=== PATIENT | male | born 1970 | race Caucasian/White ===

== ENCOUNTER 2017-07-27 12:59 | Emergency (ER) | payer BC, OTHER ==
[~2017-07-27] VITALS: Ht 170.2 cm; Wt 70.5 kg
[2017-07-27 13:00] VITALS: TEMP 37; Ht 170.2 cm; Wt 70.5 kg
[2017-07-27] MEDS ORDERED: MoRPHine SULFATE 10 MG/ML CARP/VIAL IV STA (13:56)
[2017-07-27] MEDS ORDERED: LIDOCAINE/EPINEPH/TETRACAINE 1 EA SYR EXT STA (13:58)
[2017-07-27] MEDS ORDERED: CLINDAMYCIN IV 900 MG in DEXTROSE 5% 100ML 100 ML IV ONE (14:00)
[2017-07-27] MEDS ORDERED: LIDOCAINE/EPINEPHRINE 1% 20 ML VIAL INFIL ONE (14:00)
--- NOTE | 2017-07-27 14:02 | EMERGENCY ROOM VISIT NOTE ---
History Report prepared by Андрей: Sheng Peralta Under the Supervision of: Dr. Terrence Gonzalez M.D. First contact with patient: 13:20 Chief Complaint: FACIAL PAIN/INJURY Stated Complaint: SWOLLEN AND PAINFUL LIP History of Present Illness The patient is a 46 year old white male with a past medical history of DM who presents to the ED with a cc of worsening upper lip swelling beginning three days ago. Patient tried left over abx from sinus infection three days ago, but it did not help. Positive pain radiating to gums and head. Negative dental pain , recent shaving, smoking, changes in DM medication, allergies. Source of History: patient Onset: three days ago Position: lip (upper) Quality: other (swelling) Timing: worsening Note: Associated symptoms: pain radiates to his gums, jaw, and head. Denies: dental pain, recent shaving, smoking, changes in DM medication Review of Systems See HPI for pertinent positives and negatives. A total of ten systems were reviewed and were otherwise negative. Past Medical & Surgical Medical Problems: (1) Diabetes mellitus Family History Diabetes mellitus Social History Smoking Status: Never Smoker Smokeless Tobacco Use: No Alcohol Use: none Marital Status: single Housing Status: lives with family Occupation Status: employed Current/Historical Medications Scheduled Clindamycin Hcl (Cleocin), 450 MG PO QID Insulin Isophan/Regular (Humulin 70/30), 60 UNITS SC DAILY Ondasetron Odt (Zofran Odt), 4 MG SL Q6H Tramadol Hcl (Ultram), 50 MG PO Q8H Allergies Coded Allergies: No Known Allergies (Unverified , 07/27/17) Physical Exam Vital Signs Date Time Temp Pulse Resp B/P (MAP) Pulse Ox O2 Delivery O2 Flow Rate FiO2 07/27/17 17:25 119 18 128/71 97 Room Air 07/27/17 16:11 109 20 130/92 97 Room Air 07/27/17 14:52 86 15 113/73 95 Room Air 07/27/17 14:40 72 14 80/47 93 Room Air 07/27/17 14:37 67 14 77/45 94 07/27/17 14:34 74 15 89/57 96 Room Air 07/27/17 13:00 37.0 132 16 141/82 99 Room Air Physical Exam GENERAL: Awake, alert, well-appearing, NAD HENT: Normocephalic, atraumatic. Tenderness, erythema, and fluctuates to the upper lip. No tenderness or swelling to dental roots. EYES: Normal conjunctiva. Sclera non-icteric. NECK: Supple. No nuchal rigidity. FROM. RESPIRATORY: CTAB, no rhonchi, wheezing, crackles CARDIAC: RRR, no MRG ABDOMEN: Soft, NTND, BS+ MSK: No chest wall TTP, no LE edema NEURO: GCS 15, CN 2-12 intact, moves all 4s on command SKIN: No rash or jaundice noted. Medical Decision & Procedures Laboratory Results 07/27/17 14:30 Red Blood Count 5.68, Mean Corpuscular Volume 83.5, Mean Corpuscular Hemoglobin 29.0, Mean Corpuscular Hemoglobin Concent 34.8, Mean Platelet Volume 10.2, Neutrophils (%) (Auto) 80.8, Lymphocytes (%) (Auto) 11.7, Monocytes (%) (Auto) 6.3, Eosinophils (%) (Auto) 0.5, Basophils (%) (Auto) 0.3, Neutrophils # (Auto) 10.51, Lymphocytes # (Auto) 1.52, Monocytes # (Auto) 0.82, Eosinophils # (Auto) 0.06, Basophils # (Auto) 0.04 07/27/17 14:30 Test 07/27/17 14:30 White Blood Count 13.00 K/uL (4.8-10.8) Red Blood Count 5.68 M/uL (4.7-6.1) Hemoglobin 16.5 g/dL (14.0-18.0) Hematocrit 47.4 % (42-52) Mean Corpuscular Volume 83.5 fL (80-100) Mean Corpuscular Hemoglobin 29.0 pg (25-34) Mean Corpuscular Hemoglobin Concent 34.8 g/dl (32-36) Platelet Count 331 K/uL (130-400) Mean Platelet Volume 10.2 fL (7.4-10.4) Neutrophils (%) (Auto) 80.8 % Lymphocytes (%) (Auto) 11.7 % Monocytes (%) (Auto) 6.3 % Eosinophils (%) (Auto) 0.5 % Basophils (%) (Auto) 0.3 % Neutrophils # (Auto) 10.51 K/uL (1.4-6.5) Lymphocytes # (Auto) 1.52 K/uL (1.2-3.4) Monocytes # (Auto) 0.82 K/uL (0.11-0.59) Eosinophils # (Auto) 0.06 K/uL (0-0.5) Basophils # (Auto) 0.04 K/uL (0-0.2) RDW Standard Deviation 37.1 fL (36.4-46.3) RDW Coefficient of Variation 12.3 % (11.5-14.5) Immature Granulocyte % (Auto) 0.4 % Immature Granulocyte # (Auto) 0.05 K/uL (0.00-0.02) Anion Gap 11.0 mmol/L (3-11) Est Creatinine Clear Calc Drug Dose 83.1 ml/min Estimated GFR () 98.9 Estimated GFR (Non- 85.3 BUN/Creatinine Ratio 13.8 (10-20) Calcium Level 9.1 mg/dl (8.5-10.1) Laboratory results reviewed by me Medications Administered Medications (Trade) Dose Ordered Sig/Marcelle Route Start Time Stop Time Status Last Admin Dose Admin Morphine Sulfate (MoRPHine SULFATE INJ) 6 mg NOW STAT IV 07/27/17 13:56 07/27/17 13:59 DC 07/27/17 14:29 6 MG Clindamycin Phosphate 900 mg/ Dextrose 106 ml @ 100 mls/hr ONE ONCE IV 07/27/17 14:00 07/27/17 15:03 DC 07/27/17 14:31 100 MLS/HR Lidocaine/ Epinephrine (Xylocaine/Epine 1% Inj) 20 ml NOW ONCE INFIL 07/27/17 14:00 07/27/17 14:01 DC 07/27/17 14:20 20 ML Tetracaine/ Epinephrine/ Lidocaine (L.e.t. Gel 4%/ 1:100/0.5%) 1 ea NOW STAT EXT 07/27/17 13:58 07/27/17 13:59 DC 07/27/17 14:18 1 EA Sodium Chloride 1,000 ml @ 999 mls/hr Q1H1M STAT IV 07/27/17 14:41 07/27/17 15:41 DC 07/27/17 14:41 999 MLS/HR Acetaminophen/ Hydrocodone Bitart ([place] 5/325 Tab) 1 tab ONE STAT PO 07/27/17 16:03 07/27/17 16:04 DC 07/27/17 16:10 1 TAB Ibuprofen (Advil Tab) 400 mg NOW STAT PO 07/27/17 16:22 07/27/17 16:24 DC 07/27/17 16:30 400 MG Acetaminophen (Tylenol Tab) 1,000 mg NOW STAT PO 07/27/17 16:22 07/27/17 16:24 DC 07/27/17 16:30 1,000 MG Tramadol HCl (Ultram Tab) 50 mg NOW STAT PO 07/27/17 16:22 07/27/17 16:24 DC 07/27/17 16:31 50 MG Procedure Incision & Drainage Indication: Abscess. Location: Left upper lip Verbal consent was obtained after the risks and benefits were explained, including but not limited to bleeding, scarring, infection, pain, and bone/joint /nerve damage. At this time, the risks of the procedure are less than the risks of NOT performing the procedure. A time out was taken and the correct patient and site identified. The skin was prepped with betadine and a sterile field set. The wound was anesthetized with 2 ml of 1% lidocaine without epinephrine. The abscess cavity was entered with a number 11 blade and purulent ( approximately 1 cc) material expressed. Copious irrigation was performed using normal saline. The wound was explored for foreign bodies and none found. Debridement was not performed. Packing placed and a sterile dressing applied. Detailed wound care instructions and signs and symptoms of worsening infection reviewed with the patient. No complications and the patient tolerated the procedure well. ED Course 1351: The patient was evaluated in room C08. A complete history and physical exam was performed. 1519: I reevaluated the patient and performed and I&D. Please refer to the procedure note for information. After the procedure, I discussed results and discharge instructions: he verbalized understanding and agreement. The patient is ready for discharge. 1614: Lorraine the nurse informed me the patient would like to be evaluated again. He refuses to leave because he is in the worst pain ever. 1621: I reevaluated the patient. He agrees with having PO pain medication. The patient is ready for discharge. Medical Decision The patient is a 46 year old white male with a past medical history of DM who presents to the ED with a cc of worsening upper lip swelling beginning three days ago. Etiologies such as cellulitis, abscess, MRSA infection, DVT, necrotizing fasciitis, dermatitis, drug eruption, dental abscess, as well as others were entertained. Patient was seen and evaluated the bedside. Patient is a known diabetic. Patient states he thought he had an ingrown hair over the left upper lip. Patient states he has had affirmative pain which radiates to the lower face. Patient denies any fevers or chills. Patient denies any nausea or vomiting. Patient does have some swelling to the left lip there is some induration, questionable fluctuance, erythema, and pain. Patient does not appear to have any swelling at the dental roots. Patient otherwise is very well-appearing. Patient did have blood work that was completed along with IV antibiotics. Patient did have a low blood pressure reading at one appointment and fluids were hung. On reassessment of the patient the patient did not have any urticaria abdominal pain nausea vomiting, shortness of breath, or wheezing. Additionally that this blood pressure was aberrant as the patient did not have any tachycardia. Furthermore, I do not believe is a medication reaction as the patient did not have any IVF or mentioned symptoms. An ultrasound was placed over the area of pain which showed a very small area of fluid. Patient did have LET gel applied. An I&D was performed. There was not very much that was aspirated however after piercing the skin with an 18-gauge needle some purulent fluid was expressed from the area. Patient swelling was mildly improved. Patient was told he should apply warm compresses to help with relief of the fluid if there is any left and to apply ice as well for swelling. Patient was told take Motrin and Tylenol. Patient was also given additional pain medication prior to discharge. Patient was also told to take his medications as prescribed and avoid alcohol or tobacco. Patient was told to practice good oral hygiene. Patient was also told to apply bacitracin to the area. Patient did tolerate the procedure well. Patient's white blood cell count was 13. Patient did have an elevated blood glucose. Bicarbonate of 23 and a normal anion gap. Given the patient tolerated the I&D and that he was afebrile with stable vital signs see was deemed suitable for outpatient follow-up and treatment. Patient was told to return if he did not have improvement of his symptoms within the next 24-48 hours. Patient was agreeable to the plan of care. Patient was given strict follow-up, discharge, and return precautions. All questions were answered. Patient was deemed suitable for outpatient follow- up at this time. Patient agreed with the plan of care and was safely discharged home. Impression Primary Impression: Diabetes mellitus Additional Impressions: Facial abscess Hyperglycemia due to type 1 diabetes mellitus Scribe Attestation The scribe's documentation has been prepared under my direction and personally reviewed by me in its entirety. I confirm that the note above accurately reflects all work, treatment, procedures, and medical decision making performed by me. Departure Information Dispostion Home / Self-Care Prescriptions Tramadol Hcl (ULTRAM) 50 Mg Tab 50 MG PO Q8H for 5 Days, #15 TAB PRN PAIN Prov: Terrence Gonzalez M.D. 07/27/17 Ondasetron Odt (ZOFRAN ODT) 4 Mg Tab 4 MG SL Q6H for Nausea, #6 TAB Prov: Terrence Gonzalez M.D. 07/27/17 Clindamycin Hcl (CLEOCIN) 150 Mg Cap 450 MG PO QID for 7 Days, #84 CAP Prov: Terrence Gonzalez M.D. 07/27/17 Referrals Lelia Gao M.D. (PCP) Forms HOME CARE DOCUMENTATION FORM, IMPORTANT VISIT INFORMATION Patient Instructions ED Abscess IandD, ED Wound Care, [facility] Additional Instructions Please return to the emergency department if you have worsening or recurrent symptoms not amenable to at-home treatment. Please call for a follow-up appointment with her primary care physician. Please take your medications as prescribed. If you have other concerns and/or complaints please feel free to also call your primary care physician's office or return the ED for further evaluation, management, and treatment. You received narcotic or benzodiazepene medication while in the emergency room today. This is an addictive medication that may cause drowziness as well as constipation. Do not drive, operate heavy machinery, or drink alcohol under the influence of this medication. You may take 400 mg Ibuprofen every 6 hours as needed for pain with food for no more than 2 consecutive days. You may take tylenol 1000 mg every 6 hours as needed for pain. You may take motrin and tylenol separately or at the same time. Take your medications as prescribed. Continue to apply ice packs as well as warm compresses to the affected area. He may also apply a an antibiotic ointment to the area. Please return if he do not see improvement in her symptoms in the next 48 hours or call your PCP. You have been examined and treated today on an emergency basis only. This is not a substitute for, or an effort to provide, complete comprehensive medical care. It is impossible to recognize and treat all injuries or illnesses in a single emergency department visit. It is therefore important that you follow up closely with [facility], your PCP, and/or your specialist(s). Call as soon as possible for an appointment. Thank you for your time and consideration. I look forward to speaking with you again soon. Please don't hesitate to call us if you have any questions. Problem Qualifiers Primary Impression: Diabetes mellitus Diabetes mellitus type: type 1 Diabetes mellitus complication status: with skin complications Diabetes mellitus complication detail: with other skin complication Qualified Codes: E10.628 - Type 1 diabetes mellitus with other skin complications
[2017-07-27 14:40] LABS: BASO % 0.3 %; BASO ABS # 0.04 K/uL (0-0.2); COMPLETE YES; EOS % 0.5 %; HEMATOCRIT 47.4 % (42-52); IG% 0.4 %; LYMPH % 11.7 %; LYMPH ABS # 1.52 K/uL (1.2-3.4); MEAN CELL VOLUME 83.5 fL (80-100); MEAN CORPUSCULAR HGB CONC 34.8 g/dl (32-36); MEAN PLATELET VOLUME 10.2 fL (7.4-10.4); MONO % 6.3 %; NEUT % 80.8 %; PLATELET COUNT 331 K/uL (130-400); RED BLOOD COUNT 5.68 M/uL (4.7-6.1)
[2017-07-27] MEDS ORDERED: SODIUM CHLORIDE 0.9% 1000ML 1,000 ML IV STA (14:41)
[2017-07-27 14:56] LABS: BUN/CREATININE RATIO 13.8 (10-20); CALCIUM 9.1 mg/dl (8.5-10.1); CREATININE 1.05 mg/dl (0.60-1.40); POTASSIUM 3.9 mmol/L (3.5-5.1)
[2017-07-27] MEDS ORDERED: INSU1INJ SC (15:04)
[2017-07-27] MEDS ORDERED: ONDA4TAB10 SL (15:55)
[2017-07-27] MEDS ORDERED: CLIN150C PO (15:55)
[2017-07-27] MEDS ORDERED: TRAM-453 PO (15:55)
[2017-07-27] MEDS ORDERED: HYDROCODONE/ACETAMOPHEN 5/325MG TAB PO STA (16:03)
[2017-07-27] MEDS ORDERED: NURSING VERBAL MED ORDER ONE (16:15)
[2017-07-27] MEDS ORDERED: TRAMADOL HCL 50 MG TAB PO STA (16:22)
[2017-07-27] MEDS ORDERED: ACETAMINOPHEN 500 MG TAB PO STA (16:22)
[2017-07-27] MEDS ORDERED: IBUPROFEN 200 MG TAB PO STA (16:22)
[2017-07-27 17:25] VITALS: BP 128/71; PULSE 119; O2SAT 97
== END 2017-07-27 17:43 | disposition home or self-care (01) ==
LOC: C.EDB 13:00 → C.EDC 17:43
DX: E10.628 Type 1 diabetes mellitus with other skin complications (principal); E10.65 Type 1 diabetes mellitus with hyperglycemia; Z83.3 Family history of diabetes mellitus; Z79.4 Long term (current) use of insulin

== ENCOUNTER 2017-10-14 13:24 | Emergency (ER) | payer BC ==
[~2017-10-14] VITALS: Ht 170.2 cm; Wt 68.9 kg
[~2017-10-14 13:24] MED LIST: INSU1INJ SC; ONDA4TAB10 SL
[2017-10-14 13:27] VITALS: TEMP 37.2; Ht 170.2 cm; Wt 68.9 kg
[2017-10-14] MEDS ORDERED: KETOROLAC TROMETHAMINE 30 MG/ML VIAL IV STA (13:45)
[2017-10-14] MEDS ORDERED: CEFTRIAXONE SOD INJ 1 GM ADDVIAL IV STA (13:45)
[2017-10-14] MEDS ORDERED: SULFAMETHOXAZOLE/TRIMETHOPRIM DS 800/160MG TAB PO ONE (13:45)
[2017-10-14] MEDS ORDERED: METH10TA4 PO (14:03)
[2017-10-14] MEDS ORDERED: TRAM-10 PO (14:04)
[2017-10-14] MEDS ORDERED: CEPH500C PO (14:04)
[2017-10-14] MEDS ORDERED: SULF800T23 PO (14:04)
[2017-10-14 14:47] VITALS: BP 118/69; PULSE 106; O2SAT 98
--- NOTE | 2017-10-14 15:06 | EMERGENCY ROOM VISIT NOTE ---
History First contact with patient: 13:34 Chief Complaint: FACIAL PAIN/INJURY Stated Complaint: INGROWN HAIR, SWOLLEN LIP, PAIN History of Present Illness The patient is a 46 year old male who presents to the Emergency Room with complaints of an ingrown hair/infection of the left upper lip region. The patient reports that he has had recurrent infections of the upper lip. He has been trying to squeeze the area to help it drain, however reports that it continues to get larger and more painful. The patient denies any prior history of antibiotic resistant infections. He rates his discomfort a 3 out of 10. Review of Systems 10 system review was performed and was negative except for pertinent positives and negatives as indicated in history of present illness Past Medical/Surgical History Medical Problems: (1) Diabetes mellitus Medical Problems: (1) Diabetes mellitus Surgical Problems: (1) History of hernia repair (2) History of vasectomy Family History Diabetes mellitus Social History Smoking Status: Never Smoker Alcohol Use: none Marital Status: single Housing Status: lives alone Occupation Status: employed Current/Historical Medications Scheduled Cephalexin Monohydrate (Keflex), 500 MG PO QID Insulin Isophan/Regular (Humulin 70/30), 20-40 UNITS SC DAILY Methylphenidate (Ritalin), 30 MG PO DAILY Sulfa/Trimethoprim (Bactrim Ds 800MG/160MG), 1 TAB PO BID Scheduled PRN Tramadol (Ultram), 1-2 TAB PO Q4H PRN for Pain Physical Exam Vital Signs Date Time Temp Pulse Resp B/P (MAP) Pulse Ox O2 Delivery O2 Flow Rate FiO2 10/14/17 14:47 106 16 118/69 98 10/14/17 13:27 37.2 116 18 120/75 97 Room Air Physical Exam CONSTITUTIONAL: Healthy and well nourished. Patient appears in mild discomfort. HEENT: Examination shows notable erythema and edema of the left upper lip region. He has an area of scabbing without any underlying fluctuance or drainage. There is no drainage into the inner lip/mucosal region. Pupils equal , round and reactive. NECK: Full active range of motion without discomfort. MUSCULOSKELETAL: Full range of motion of all joints without discomfort. INTEGUMENTARY: No rash or other significant dermatologic conditions noted. NEUROLOGIC: No focal neurologic deficits noted. Medical Decision & Procedures Medications Administered Medications (Trade) Dose Ordered Sig/Mracelle Route Start Time Stop Time Status Last Admin Dose Admin Ceftriaxone Sodium (Rocephin Inj) 1 gm NOW STAT IV 10/14/17 13:45 2 13:47 DC 10/14/17 13:59 1 GM Trimethoprim/ Sulfamethoxazole (Septra Ds 800/ 160MG Tab) 1 tab NOW ONCE PO 10/14/17 13:45 2 13:47 DC 10/14/17 13:58 1 TAB Ketorolac Tromethamine (Toradol Inj) 30 mg NOW STAT IV 10/14/17 13:45 10/14/17 13:47 DC 10/14/17 13:59 30 MG ED Course Patient history and physical exam were performed. Nurse's notes were reviewed. Vital signs were reviewed and were normal. The patient is currently afebrile. I did suggest administering a dose of IV Rocephin, and the patient was in agreement. IV access was established, and the patient was administered Rocephin 1 g IV infusion, along with Bactrim DS orally. He was also administered Toradol 30 mg IVP. The patient will be treated with Keflex and Bactrim DS antibiotics for double coverage. He was also provided a prescription for Ultram as needed for breakthrough pain, and encouraged to alternate ibuprofen and Tylenol for baseline pain relief. He was instructed to return to the emergency department for any significant worsening swelling, redness, pain or developing fever. I did encourage the patient to apply warm moist compress to the lip. The patient was advised that since he gets recurrent infections, he would benefit from further follow-up with his PCP, granite countertop installer or even plastic surgeon. The patient was happy with plan of care , and rated his discomfort a 2 out of 10 at the time of discharge. Medical Decision Medication Reconcilliation Current Medication List: was personally reviewed by me Blood Pressure Screening Patient's blood pressure: Normal blood pressure Impression Primary Impression: Facial cellulitis Departure Information Dispostion Home / Self-Care Condition GOOD Prescriptions Tramadol (Ultram) 50 Mg Tab 1-2 TAB PO Q4H Y for Pain, #20 TAB For Initial Treatment Prov: Danny Conlye PA 10/14/17 Sulfa/Trimethoprim (Bactrim Ds 800MG/160MG) Tab 1 TAB PO BID for 7 Days, #14 TAB Prov: Danny Conley PA 10/14/17 Cephalexin Monohydrate (Keflex) 500 Mg Cap 500 MG PO QID for 7 Days, #28 CAP Prov: Danny Conley PA 10/14/17 Forms HOME CARE DOCUMENTATION FORM, IMPORTANT VISIT INFORMATION Patient Instructions [facility] Additional Instructions Complete all Keflex and Bactrim DS antibiotics as prescribed. Apply warm moist compresses and keep the area covered with an ointment to help promote drainage. Ibuprofen 800 mg and/or Tylenol 1000 mg every 8 hours. You may also alternate these medications for more effective pain relief: Ibuprofen --4 HRS--> Tylenol --4 HRS--> ibuprofen --4 HRS--> Tylenol .... Ultram if needed for worse pain. You may notice some slightly worsening redness and swelling. Return to the emergency Department for significantly worsening swelling, redness , pain or developing fever. Suggest follow-up with your family doctor, granite countertop installer or plastic surgeon.
== END 2017-10-14 14:46 | disposition home or self-care (01) ==
LOC: C.EDB 13:26 → C.EDD 14:46
DX: L03.211 Cellulitis of face (principal); E11.9 Type 2 diabetes mellitus without complications; Z83.3 Family history of diabetes mellitus; Z79.4 Long term (current) use of insulin; Z79.899 Other long term (current) drug therapy

== ENCOUNTER 2017-10-15 11:27 | Emergency (ER) | payer BC ==
[~2017-10-15] VITALS: Ht 170.2 cm; Wt 69.0 kg
[~2017-10-15 11:27] MED LIST changes: +CEPH500C PO; +METH10TA4 PO; -ONDA4TAB10 SL; +SULF800T23 PO; +TRAM-10 PO
[2017-10-15 11:30] VITALS: TEMP 36.9; Ht 170.2 cm; Wt 69.0 kg
[2017-10-15] MEDS ORDERED: IBUPROFEN 600 MG TAB PO STA (12:29)
[2017-10-15] MEDS ORDERED: HYDROCODONE/ACETAMIN 5/325MG TAB PO STA (12:29)
[2017-10-15] MEDS ORDERED: ACETAMINOPHEN 500 MG TAB PO STA (12:38)
--- NOTE | 2017-10-15 12:45 | EMERGENCY ROOM VISIT NOTE ---
History Report prepared by Андрей: Ty Mckeon Under the Supervision of: Dr. Terrence Gonzalez M.D. First contact with patient: 11:58 Chief Complaint: FACIAL PAIN/INJURY Stated Complaint: SWOLLEN LEFT SIDE OF FACE,HERE YESTERDAY History of Present Illness The patient is a 46 year old male with a history of diabetes who presents to the Emergency Room with complaints of worsening left sided facial pain and swelling beginning yesterday. He was seen in the ED yesterday for swelling of his lip and was discharged on antibiotics (Bactrim & Keflex), and states that his symptoms have not improved. The patient states that his swelling has now spread to the rest of his face, up to his left eye. He feels that he can feel a small "bump" in his cheek as well. He also complains of intermittent dizziness. The patient denies neck pain. He has a history of diabetes. He has a history of ingrown hairs. Source of History: patient Onset: Yesterday Position: head (left face) Quality: other (pain and swelling) Timing: worsening Associated Symptoms: No neck pain Note: The patient also complains of intermittent dizziness. Review of Systems See HPI for pertinent positives and negatives. A total of ten systems were reviewed and were otherwise negative. Past Medical & Surgical Medical Problems: (1) Diabetes mellitus Surgical Problems: (1) History of hernia repair (2) History of vasectomy Family History Diabetes mellitus Social History Smoking Status: Never Smoker Alcohol Use: none Marital Status: single Housing Status: lives alone Occupation Status: employed Current/Historical Medications Scheduled Insulin Isophan/Regular (Humulin 70/30), 20-40 UNITS SC DAILY Methylphenidate (Ritalin), 30 MG PO DAILY Allergies Coded Allergies: No Known Allergies (Unverified , 10/15/17) Physical Exam Vital Signs Date Time Temp Pulse Resp B/P (MAP) Pulse Ox O2 Delivery O2 Flow Rate FiO2 10/15/17 14:21 99 19 119/72 97 10/15/17 11:30 36.9 108 16 124/77 97 Physical Exam GENERAL: Awake, alert, well-appearing, NAD HENT: Normocephalic, atraumatic. Swelling to the left maxillary area. Induration and a scab superior and left to the upper lip. Posterior oropharynx clear. No sublingual spelling. No signs of odontogenic infection. EYES: Normal conjunctiva. Sclera non-icteric. No proptosis. EOMI. NECK: Supple. No nuchal rigidity. FROM. RESPIRATORY: CTAB, no rhonchi, wheezing, crackles CARDIAC: RRR, no MRG ABDOMEN: Soft, NTND, BS+ MSK: No chest wall TTP, no LE edema NEURO: GCS 15, CN 2-12 intact, moves all 4s on command SKIN: No rash or jaundice noted. Medical Decision & Procedures Laboratory Results 10/15/17 12:58 Red Blood Count 5.07, Mean Corpuscular Volume 81.7, Mean Corpuscular Hemoglobin 29.4, Mean Corpuscular Hemoglobin Concent 36.0, Mean Platelet Volume 10.0, Neutrophils (%) (Auto) 79.8, Lymphocytes (%) (Auto) 10.8, Monocytes (%) (Auto) 7.0, Eosinophils (%) (Auto) 1.6, Basophils (%) (Auto) 0.4, Neutrophils # (Auto) 9.06, Lymphocytes # (Auto) 1.23, Monocytes # (Auto) 0.80, Eosinophils # (Auto) 0.18, Basophils # (Auto) 0.04 10/15/17 12:58 Test 10/15/17 12:58 White Blood Count 11.35 K/uL (4.8-10.8) Red Blood Count 5.07 M/uL (4.7-6.1) Hemoglobin 14.9 g/dL (14.0-18.0) Hematocrit 41.4 % (42-52) Mean Corpuscular Volume 81.7 fL (80-100) Mean Corpuscular Hemoglobin 29.4 pg (25-34) Mean Corpuscular Hemoglobin Concent 36.0 g/dl (32-36) Platelet Count 275 K/uL (130-400) Mean Platelet Volume 10.0 fL (7.4-10.4) Neutrophils (%) (Auto) 79.8 % Lymphocytes (%) (Auto) 10.8 % Monocytes (%) (Auto) 7.0 % Eosinophils (%) (Auto) 1.6 % Basophils (%) (Auto) 0.4 % Neutrophils # (Auto) 9.06 K/uL (1.4-6.5) Lymphocytes # (Auto) 1.23 K/uL (1.2-3.4) Monocytes # (Auto) 0.80 K/uL (0.11-0.59) Eosinophils # (Auto) 0.18 K/uL (0-0.5) Basophils # (Auto) 0.04 K/uL (0-0.2) RDW Standard Deviation 36.4 fL (36.4-46.3) RDW Coefficient of Variation 12.4 % (11.5-14.5) Immature Granulocyte % (Auto) 0.4 % Immature Granulocyte # (Auto) 0.04 K/uL (0.00-0.02) Anion Gap 10.0 mmol/L (3-11) Est Creatinine Clear Calc Drug Dose 96.9 ml/min Estimated GFR () 119.1 Estimated GFR (Non- 102.8 BUN/Creatinine Ratio 17.7 (10-20) Calcium Level 8.7 mg/dl (8.5-10.1) Laboratory results reviewed by me Medications Administered Medications (Trade) Dose Ordered Sig/Marcelle Route Start Time Stop Time Status Last Admin Dose Admin Ibuprofen (Motrin Tab) 600 mg NOW STAT PO 10/15/17 12:29 10/15/17 12:30 DC 10/15/17 12:43 600 MG Acetaminophen (Tylenol Tab) 1,000 mg NOW STAT PO 10/15/17 12:38 10/15/17 12:39 DC 10/15/17 12:44 1,000 MG Procedure Incision & Drainage Indication: Abscess. Location: Left upper lip Verbal consent was obtained after the risks and benefits were explained, including but not limited to bleeding, scarring, infection, pain, and bone/joint /nerve damage. At this time, the risks of the procedure are less than the risks of NOT performing the procedure. A time out was taken and the correct patient and site identified. The abscess cavity were entered with an 22 gauge needle and purulent material was expressed. Debridement was not performed. A sterile dressing was applied. Detailed wound care instructions and signs and symptoms of worsening infection reviewed with the patient. No complications and the patient tolerated the procedure well. ED Course 1205: The patient was evaluated in room C7. A complete history and physical exam was performed. 1209: I performed an I&D on the patient. See the procedure note for details. 1340: I reevaluated the patient. Discussed results and discharge instructions: he verbalized understanding and agreement. The patient is ready for discharge. Medical Decision The patient is a 46 year old male with a history of diabetes who presents to the Emergency Room with complaints of worsening left sided facial pain and swelling beginning yesterday. Differential diagnosis: Etiologies such as cellulitis, abscess, MRSA infection, DVT, necrotizing fasciitis, dermatitis, drug eruption, as well as others were entertained. Patient was seen and evaluated the bedside. Patient does have a known history of insulin-dependent diabetes. Patient was seen and evaluated here yesterday which point he received Rocephin IV as well as p.o. Bactrim and Keflex as an outpatient. Patient was concerned as he noted some facial swelling. Patient is EOMI without any proptosis. I do not believe he has any sort of preseptal or orbital cellulitis. The patient does have some swelling to the maxillary area of the face. His site of induration is just superior and left to the upper lip. I was able to drain approximately 1 cc of purulent fluid from this area. He did had several ingrown hairs. Blood work was obtained and the patient was given pain medication. Patient has already been on Keflex and Bactrim and was told to continue to do so. Patient was told to apply bacitracin to the area and to continue to apply warm compresses intermittently with ice packs to the face to help with any swelling. I do not believe that he requires CT of the face at this time. Patient was deemed suitable for outpatient follow-up and treatment as his blood work is fairly stable and I do not believe he has given sufficient time for his p.o. antibiotics to fully work. Furthermore, with the drainage of the purulent fluid at the bedside this likely will help this infectious process as well. Patient was given strict follow-up, discharge, and return precautions. All questions were answered. Patient was deemed suitable for outpatient follow-up at this time. Patient agreed with the plan of care and was safely discharged home. Medication Reconcilliation Current Medication List: was personally reviewed by me Blood Pressure Screening Patient's blood pressure: Normal blood pressure Blood pressure disposition: Did not require urgent referral Impression Primary Impression: Facial abscess Additional Impressions: Facial cellulitis Folliculitis Facial pain Scribe Attestation The scribe's documentation has been prepared under my direction and personally reviewed by me in its entirety. I confirm that the note above accurately reflects all work, treatment, procedures, and medical decision making performed by me. Departure Information Dispostion Home / Self-Care Referrals Lelia Gao M.D. (PCP) Patient Instructions Cellulitis Dc, ED Cellulitis Facial, ED Folliculitis, [facility] Additional Instructions Please return to the emergency department if you have worsening or recurrent symptoms not amenable to at-home treatment. Please call for a follow-up appointment with her primary care physician. Please take your medications as prescribed. If you have other concerns and/or complaints please feel free to also call your primary care physician's office or return the ED for further evaluation, management, and treatment. You may take 600 mg Ibuprofen every 6 hours as needed for pain with food for no more than 2 consecutive days. You may take tylenol 1000 mg every 6 hours as needed for pain. You may take motrin and tylenol separately or at the same time. Take your medications as prescribed. If taking an antibiotic consider taking a probiotic and/or eating yogurt, but at the least, please take with food as it can cause upset stomach. Please continue to take your antibiotics. Please follow-up with your primary care physician. Please apply warm compresses as well as ice intermittently to the face to help with any swelling. You have been examined and treated today on an emergency basis only. This is not a substitute for, or an effort to provide, complete comprehensive medical care. It is impossible to recognize and treat all injuries or illnesses in a single emergency department visit. It is therefore important that you follow up closely with [facility], your PCP, and/or your specialist(s). Call as soon as possible for an appointment. Thank you for your time and consideration. I look forward to speaking with you again soon. Please don't hesitate to call us if you have any questions. Problem Qualifiers
[2017-10-15 13:15] LABS: BASO % 0.4 %; BASO ABS # 0.04 K/uL (0-0.2); EOS % 1.6 %; EOS ABS # 0.18 K/uL (0-0.5); HEMATOCRIT 41.4 % (42-52); HEMOGLOBIN 14.9 g/dL (14.0-18.0); IG# 0.04 K/uL (0.00-0.02); LYMPH % 10.8 %; LYMPH ABS # 1.23 K/uL (1.2-3.4); MEAN CELL VOLUME 81.7 fL (80-100); MEAN CORPUSCULAR HEMOGLOBIN 29.4 pg (25-34); NEUT % 79.8 %; NEUT ABS # 9.06 K/uL (1.4-6.5); PLATELET COUNT 275 K/uL (130-400); RED CELL DISTRIBUTION WIDTH CV 12.4 % (11.5-14.5); RED CELL DISTRIBUTION WIDTH SD 36.4 fL (36.4-46.3); WHITE BLOOD COUNT 11.35 K/uL (4.8-10.8)
[2017-10-15 13:38] LABS: CALCIUM 8.7 mg/dl (8.5-10.1); CREATININE 0.9 mg/dl (0.60-1.40); POTASSIUM 4.2 mmol/L (3.5-5.1)
[2017-10-15 14:21] VITALS: BP 119/72; PULSE 99; O2SAT 97
== END 2017-10-15 14:24 | disposition home or self-care (01) ==
LOC: C.EDB 11:29 → C.EDC 14:24
DX: L02.01 Cutaneous abscess of face (principal); L03.90 Cellulitis, unspecified; L73.9 Follicular disorder, unspecified; R51 Headache; E11.9 Type 2 diabetes mellitus without complications; Z83.3 Family history of diabetes mellitus; Z79.4 Long term (current) use of insulin

== ENCOUNTER 2020-11-19 10:40 | Inpatient (IN) ==
[2020-11-19] MEDS ORDERED: HYDROmorphone INJ 0.5 MG/0.5 ML SYR IV STA ×2 (11:56→14:37)
[2020-11-19] MEDS ORDERED: ONDANSETRON INJ 2 MG/ML 2 ML VIAL IV STA (11:56)
[2020-11-19] MEDS ORDERED: SODIUM CHLORIDE 0.9% 1000ML 1,000 ML IV SCH (12:00)
--- NOTE | 2020-11-19 12:00 | Emergency Department Note ---
History of Present Illness General Chief complaint: Infection Stated complaint: INFECTED HAIR ON SIDE OF HEAD, HURTS BAD Time Seen by Provider: 11/19/20 11:43 History of Present Illness Maximum Pain Intensity: 10 This is a 50-year-old insulin-dependent diabetic the presents to the emergency department via private vehicle with complaints of "right neck pain, abscess". The patient states this past Friday he began with what he believes was a small pimple to the right side of the neck. He picked at this region and popped it and it drained some pus. He notes that since that time it is not draining anymore and he notes persistence of swelling to the area and pain. He notes tremendous pressure to the right side of the neck. He rates his overall discomfort at this time as a 10/10. He has associated chills. No nausea or vomiting. No fever. Home Medications Medication Instructions Recorded Confirmed Type gabapentin 600 mg PO TID 05/09/18 11/19/20 History methylphenidate HCl [Ritalin LA] 30 mg PO DAILY 05/09/18 11/19/20 History omeprazole 20 mg PO Q2D 05/09/18 11/19/20 History aspirin 81 mg PO QAM 11/21/18 11/19/20 History insulin glargine [Lantus Solostar 40 unit SUBCUT HS 11/21/18 11/19/20 History U-100 Insulin] atorvastatin 40 mg PO Q3D 11/19/20 11/19/20 History dulaglutide [Trulicity] 0.75 mg SUBCUT WK 11/19/20 11/19/20 History metformin 500 mg PO BID 11/19/20 11/19/20 History sildenafil 100 mg PO UD PRN 11/19/20 11/19/20 History tamsulosin 0.4 mg PO DAILY 11/19/20 11/19/20 History Allergies Allergy/AdvReac Type Severity Reaction Status Date / Time No Known Allergies Allergy Unverified 11/19/20 13:24 Past Med/Surg History Medical History BPH (benign prostatic hyperplasia) Cellulitis Diabetes mellitus, type II Dyslipidemia Facial cellulitis GERD (gastroesophageal reflux disease) Surgical History History of hernia repair History of vasectomy Family History Other Diabetes Social History (Updated 11/19/20 @ 14:49 by Radha Patel PA-C) Smoking Status: Former smoker Hx Alcohol Use: No Hx Substance Use: No Preferred Language: Italian [employer] Required: No Beliefs That Will Affect Care: None marital status: Single Current Living Situation: Family Current Living Situation Comment: With daughter Camilla current occupational status: employed Other Information That Helps Us Care for You: No Feels Safe at Home: Yes Safety Concerns: Feels Safe At This Time Review of Systems A total of 10 systems reviewed and were otherwise negative Physical Exam Vital Signs Vital Signs - 24 hr 11/19/20 11:06 11/19/20 12:40 Temperature 36.6 C Temperature Source Oral Pulse Rate 111 H Pulse Rate [Finger] 78 Respiratory Rate 18 20 Respiratory Effort / Characteristics Non-Labored Respiratory Depth Normal Respiratory Pattern Regular Blood Pressure 128/86 Blood Pressure [Right Arm] 121/67 Blood Pressure Mean 100 Blood Pressure Mean [Right Arm] 85 Pulse Oximetry 99 96 Oxygen Delivery Method Room Air Room Air Sepsis Recent Fever Within 48 Hours No Sepsis New/Unexplained Change in Mental Status N/A Sepsis Action Taken by Nursing No Action Required VITAL SIGNS - Vital signs and nursing notes were reviewed. Stable and afebrile. Tachycardic. GENERAL -50-year-old male appearing his stated age who is in no acute distress. Communicates well with provider and answers questions appropriately. SKIN - Without rashes. No meningeal or petechial rash. HEAD - NC/AT. EYES - PERRL with EOMI bilaterally. Sclera anicteric. EARS - No deformities of external structures noted on gross examination bilaterally. NOSE - Midline and without cyanosis. No epistaxis or purulent drainage noted. MOUTH/OROPHARYNX - Without perioral cyanosis. NECK - Neck with FROM. No rigidity. The patient does have erythema overlying much of the right side of the neck with a central, edematous and indurated region with a 1 cm central area of biofilm-like clearing consistent with infection. This is tender. LUNGS - Chest wall symmetric without accessory muscle use, intercostals retractions, or central cyanosis. Normal vesicular breath sounds CTA B/L. No wheezes, rales, or rhonchi appreciated. CARDIAC -tachycardic at regular rate with S1/S2. No murmur, rubs, or gallops appreciated. EXTREMITIES - No clubbing or peripheral cyanosis. No pretibial edema present. +5/5 strength noted in UE/LE bilaterally. NEUROLOGIC - Cranial nerves II through XII grossly intact. PSYCH - A&Ox3 and cooperates fully with examiner. Pt is very pleasant and interacts well with examiner. Course Administered Medications Acetaminophen (Acetaminophen 500 Mg Tab) 1,000 mg PO Q8 MIA Stop: 12/19/20 17:59 Last Admin: 11/19/20 17:42 Dose: Not Given Documented by: [id number] Gabapentin (Gabapentin 300 Mg Cap) 600 mg PO TID MIA Stop: 12/19/20 20:59 Last Admin: 11/19/20 20:36 Dose: 600 mg Documented by: [id number] Sodium Chloride (Nss 1000ml) 1,000 mls @ 100 mls/hr IV .Q10H [facility] Stop: 11/20/20 12:51 Last Admin: 11/19/20 17:21 Dose: 100 mls/hr Documented by: [id number] Insulin Aspart (Insulin Aspart 100 Units/Ml 3 Ml Pen) 0 units SC ACHS [facility] Stop: 12/19/20 16:51 Last Admin: 11/19/20 20:40 Dose: Not Given Documented by: [id number] Cosigned by: [id number] Admin: 11/19/20 17:42 Dose: 3 units Documented by: [id number] Cosigned by: [id number] Insulin Glargine (Insulin Glargine Solostar 100 Units/Ml 3 Ml Pen) 0 - 20 units SC BID MIA Stop: 12/19/20 20:59 Last Admin: 11/19/20 20:37 Dose: 10 units Documented by: [id number] Cosigned by: [id number] Oxycodone HCl (Oxycodone Hcl Ir 5 Mg Tab (Immediate Release)) 5 mg PO Q6H PRN PRN Reason: Moderate Pain Stop: 12/03/20 16:51 Last Admin: 11/19/20 20:37 Dose: 5 mg Documented by: [id number] Admin: 11/19/20 17:23 Dose: 5 mg Documented by: [id number] Discontinued Medications Hydromorphone HCl (Hydromorphone Inj 0.5 Mg/0.5 Ml Syr) 0.5 mg IV NOW STA Stop: 11/19/20 11:57 Last Admin: 11/19/20 12:18 Dose: 0.5 mg Documented by: [id number] Hydromorphone HCl (Hydromorphone Inj 0.5 Mg/0.5 Ml Syr) 0.5 mg IV NOW STA Stop: 11/19/20 14:38 Last Admin: 11/19/20 15:59 Dose: 0.5 mg Documented by: [id number] Sodium Chloride (Nss 1000ml) 1,000 mls @ 999 mls/hr IV .Q1H1M MIA Stop: 11/19/20 13:00 Last Infusion: 11/19/20 13:20 Dose: 0 mls/hr Documented by: [id number] Admin: 11/19/20 12:18 Dose: 999 mls/hr Documented by: [id number] Ceftriaxone Sodium (Rocephin) 2,000 mg in 70 mls @ 140 mls/hr IV NOW STA Stop: 11/19/20 14:10 Last Admin: 11/19/20 14:48 Dose: Not Given Documented by: [id number] Piperacillin Sod/Tazobactam (Sod 3.375 gm/ Dextrose) 115 mls @ 230 mls/hr IV NOW ONE; Protocol Stop: 11/19/20 15:29 Last Infusion: 11/19/20 16:55 Dose: 0 mls/hr Documented by: [id number] Admin: 11/19/20 16:00 Dose: 230 mls/hr Documented by: [id number] Daptomycin 275 mg/ Syringe 5.5 mls @ 2.75 mls/min IV NOW ONE; Protocol Stop: 11/19/20 15:01 Last Admin: 11/19/20 16:00 Dose: 2.75 mls/min Documented by: [id number] Ioversol (Ioversol 100ml) 93 ml IV ONCE ONE Stop: 11/19/20 12:58 Last Admin: 11/19/20 12:57 Dose: 1 ml Documented by: [id number] Ondansetron HCl (Ondansetron Inj 2 Mg/Ml 2 Ml Vial) 4 mg IV NOW STA Stop: 11/19/20 11:57 Last Admin: 11/19/20 12:18 Dose: 4 mg Documented by: [id number] Potassium Chloride (Potassium Chloride Crtab 20 Meq Tabcr) 20 meq PO NOW STA Stop: 11/19/20 14:43 Last Admin: 11/19/20 16:00 Dose: 20 meq Documented by: [id number] Medical Decision Making Laboratory Data Result diagrams: 11/19/20 12:15 11/19/20 12:15 Lab Results 11/19/20 11/19/20 11/19/20 Range/Units 12:15 12:15 12:15 WBC 16.24 H (4.8-10.8) K/uL RBC 5.37 (4.7-6.1) M/uL Hgb 15.7 (14.0-18.0) g/dL Hct 42.4 (42-52) % MCV 79.0 L (80-100) fL MCH 29.2 (25-34) pg MCHC 37.0 H (32-36) g/dL RDW Std Deviation 34.6 L (36.4-46.3) fL RDW Coeff of Gary 12.1 (11.5-14.5) % Plt Count 387 (130-400) K/uL MPV 10.3 (7.4-10.4) fL Immature Gran % (Auto) 0.2 % Neut % (Auto) 85.4 % Lymph % (Auto) 8.3 % [place] % (Auto) 5.4 % Eos % (Auto) 0.6 % Baso % (Auto) 0.1 % Neut # (Auto) 13.88 H (1.4-6.5) K/uL Lymph # (Auto) 1.34 (1.2-3.4) K/uL [place] # (Auto) 0.87 H (0.11-0.59) K/uL Eos # (Auto) 0.09 (0-0.5) K/uL Baso # (Auto) 0.02 (0-0.2) K/uL Immature Gran # (Auto) 0.04 H (0.00-0.02) K/uL Sodium 137 (136-145) mmol/L Potassium 3.5 (3.5-5.1) mmol/L Chloride 104 (98-107) mmol/L Carbon Dioxide 25 (21-32) mmol/L Anion Gap 8.0 (3-11) BUN 15 (7-18) mg/dl Creatinine 0.85 (0.6-1.4) mg/dl Est Cr Clr Drug Dosing 98.3 ml/min Est GFR ( Amer) 118.6 Est GFR (Non-Af Amer) 102.3 BUN/Creatinine Ratio 17.8 (10-20) Glucose 166 H (70-99) mg/dl Lactate 1.4 (0.4-2.0) mmol/L Calcium 9.6 (8.5-10.1) mg/dl Total Bilirubin 0.9 (0.2-1) mg/dl AST 14 L (15-37) U/L ALT 27 (12-78) U/L Alkaline Phosphatase 118 H (45-117) U/L Total Creatine Kinase (39-308) U/L Total Protein 7.9 (6.4-8.2) gm/dl Albumin 3.5 (3.4-5.0) gm/dl Globulin 4.4 H (2.5-4.0) gm/dl Albumin/Globulin Ratio 0.8 L (0.9-2) Procalcitonin (0-0.5) ng/ml COVID-19 Eval Order SARS-CoV-2, RNA, NAAT (NEGATIVE) 11/19/20 11/19/20 11/19/20 Range/Units 12:15 12:15 14:20 WBC (4.8-10.8) K/uL RBC (4.7-6.1) M/uL Hgb (14.0-18.0) g/dL Hct (42-52) % MCV (80-100) fL MCH (25-34) pg MCHC (32-36) g/dL RDW Std Deviation (36.4-46.3) fL RDW Coeff of Gary (11.5-14.5) % Plt Count (130-400) K/uL MPV (7.4-10.4) fL Immature Gran % (Auto) % Neut % (Auto) % Lymph % (Auto) % [place] % (Auto) % Eos % (Auto) % Baso % (Auto) % Neut # (Auto) (1.4-6.5) K/uL Lymph # (Auto) (1.2-3.4) K/uL [place] # (Auto) (0.11-0.59) K/uL Eos # (Auto) (0-0.5) K/uL Baso # (Auto) (0-0.2) K/uL Immature Gran # (Auto) (0.00-0.02) K/uL Sodium (136-145) mmol/L Potassium (3.5-5.1) mmol/L Chloride (98-107) mmol/L Carbon Dioxide (21-32) mmol/L Anion Gap (3-11) BUN (7-18) mg/dl Creatinine (0.6-1.4) mg/dl Est Cr Clr Drug Dosing ml/min Est GFR ( Amer) Est GFR (Non-Af Amer) BUN/Creatinine Ratio (10-20) Glucose (70-99) mg/dl Lactate (0.4-2.0) mmol/L Calcium (8.5-10.1) mg/dl Total Bilirubin (0.2-1) mg/dl AST (15-37) U/L ALT (12-78) U/L Alkaline Phosphatase (45-117) U/L Total Creatine Kinase 63 (39-308) U/L Total Protein (6.4-8.2) gm/dl Albumin (3.4-5.0) gm/dl Globulin (2.5-4.0) gm/dl Albumin/Globulin Ratio (0.9-2) Procalcitonin 0.31 (0-0.5) ng/ml COVID-19 Eval [facility] SARS-CoV-2, RNA, NAAT (NEGATIVE) 11/19/20 Range/Units 14:20 WBC (4.8-10.8) K/uL RBC (4.7-6.1) M/uL Hgb (14.0-18.0) g/dL Hct (42-52) % MCV (80-100) fL MCH (25-34) pg MCHC (32-36) g/dL RDW Std Deviation (36.4-46.3) fL RDW Coeff of Gary (11.5-14.5) % Plt Count (130-400) K/uL MPV (7.4-10.4) fL Immature Gran % (Auto) % Neut % (Auto) % Lymph % (Auto) % [place] % (Auto) % Eos % (Auto) % Baso % (Auto) % Neut # (Auto) (1.4-6.5) K/uL Lymph # (Auto) (1.2-3.4) K/uL [place] # (Auto) (0.11-0.59) K/uL Eos # (Auto) (0-0.5) K/uL Baso # (Auto) (0-0.2) K/uL Immature Gran # (Auto) (0.00-0.02) K/uL Sodium (136-145) mmol/L Potassium (3.5-5.1) mmol/L Chloride (98-107) mmol/L Carbon Dioxide (21-32) mmol/L Anion Gap (3-11) BUN (7-18) mg/dl Creatinine (0.6-1.4) mg/dl Est Cr Clr Drug Dosing ml/min Est GFR ( Amer) Est GFR (Non-Af Amer) BUN/Creatinine Ratio (10-20) Glucose (70-99) mg/dl Lactate (0.4-2.0) mmol/L Calcium (8.5-10.1) mg/dl Total Bilirubin (0.2-1) mg/dl AST (15-37) U/L ALT (12-78) U/L Alkaline Phosphatase (45-117) U/L Total Creatine Kinase (39-308) U/L Total Protein (6.4-8.2) gm/dl Albumin (3.4-5.0) gm/dl Globulin (2.5-4.0) gm/dl Albumin/Globulin Ratio (0.9-2) Procalcitonin (0-0.5) ng/ml COVID-19 Eval Order SARS-CoV-2, RNA, NAAT NEGATIVE (NEGATIVE) Imaging Data Radiologist's Impression: CT soft tissue neck w con CT DOSE: 510.56 mGy.cm CLINICAL HISTORY: Right-sided infection. Evaluate for abscess. TECHNIQUE: Helical images were acquired during intravenous administration of 94 cc of Optiray 320. A dose lowering technique was utilized adhering to the principles of ALARA. COMPARISON STUDY: None. FINDINGS: The visualized portions of the lung apices are unremarkable. No thyroid masses are visualized. No salivary gland masses are visualized. Minimally prominent right jugulodigastric and posterior triangle lymph nodes are likely reactive. There are no fluid collections suspicious for abscess. There is no evidence of airway compromise. No mucosal space masses are visualized. There is right posterior lateral neck subcutaneous edema. This abuts the sterno cleidomastoid muscle and posterior lateral neck musculature. There is minimal skin thickening. There are no fluid collections to indicate an abscess. The findings are likely infectious/inflammatory. IMPRESSION: 1. Right posterior lateral soft tissue neck edema involving the skin subcutaneous tissues and extending to the superficial muscular fascial margins. No fluid collections to indicate a drainable abscess. The findings are likely infectious/inflammatory basis. 2. No evidence of airway compromise. No pathologic neck masses identified ACT 112: Negative or not required by law. Electronically signed by: Chano Magana M.D. 11/19/2020 1:21 PM MDM Narrative Patient was seen and evaluated as above in room C01. Review was performed of nursing notes and vital signs. I did review pertinent previous visits and patient history. After obtaining a thorough history and physical examination the above work up was performed. Patient presents to us today with pain on the right side of his neck that started this past Friday when he noted there was a small wound there that he thought was a small pimple. He popped this. Some small drainage was noted per patient. He notes now pain and swelling to the right side of the neck. There is no more drainage. On arrival the patient does have a large amount of edema to the right side of the neck. IV access established. Labs were drawn. CT scan was obtained. There are findings to suggest infection however there is no drainable abscess. I would agree with this clinically. There is leukocytosis 16.24 without significant anemia. No emergent metabolic disturbance. Covid screen negative. Pro-Nick within normal limits but mid range. Given the extent, his diabetic state I do believe that further evaluation and management inpatient setting is warranted. Patient amenable with plan of care. While here he was also given IV analgesics. Please refer to further documentation regarding his stay Case was discussed with the attending physician. GCS: 15 In the evaluation and treatment of this patient the following differential diagnoses were entertained: Abscess, cellulitis, necrotizing fasciitis, septic emboli, Ludwigs angina, among others. Impression & Plan Cellulitis, neck Discharge Plan Visit Data Chief Complaint: Infection Stated Complaint: INFECTED HAIR ON SIDE OF HEAD, HURTS BAD ED Provider: Quin[facility] ED Midlevel Provider: Christopher Rinaldi Discharge Problem: Cellulitis, neck Patient Disposition: Admitted As Inpatient Condition: Good Discharge Instructions Interventions: ED Discharge Assessment Last Done: 11/19/20 15:52
[2020-11-19 12:35] LABS: Basophils # (auto) 0.02 K/uL (0-0.2); Basophils % (auto) 0.1 %; Eosinophils # (auto) 0.09 K/uL (0-0.5); Eosinophils % (auto) 0.6 %; Hematocrit (blood only) 42.4 % (42-52); Hemoglobin 15.7 g/dL (14.0-18.0); Immature Granulocytes # (auto) 0.04 K/uL (0.00-0.02); Immature Granulocytes % (auto) 0.2 %; Lymphocytes # (auto) 1.34 K/uL (1.2-3.4); Lymphocytes % (auto) 8.3 %; Mean Corpuscular Hemoglobin 29.2 pg (25-34); Mean Platelet Volume 10.3 fL (7.4-10.4); Monocytes # (auto) 0.87 K/uL (0.11-0.59); Monocytes % (auto) 5.4 %; Neutrophils # (auto) 13.88 K/uL (1.4-6.5); Neutrophils % (auto) 85.4 %; Platelet Count 387 K/uL (130-400); RDW Coefficient of Variation 12.1 % (11.5-14.5); RDW Standard Deviation 34.6 fL (36.4-46.3); Red Blood Count 5.37 M/uL (4.7-6.1); White Blood Count 16.24 K/uL (4.8-10.8)
[2020-11-19 12:51] LABS: Albumin Level 3.5 gm/dl (3.4-5.0); BUN Creatinine Ratio 17.8 (10-20); Calcium 9.6 mg/dl (8.5-10.1); Creatinine Clr Calc Pharmacy 98.3 ml/min; Est GFR (African American) 118.6; Est GFR (Non-African American) 102.3; Potassium 3.5 mmol/L (3.5-5.1)
[2020-11-19 12:54] LABS: Albumin Globulin Ratio 0.8 (0.9-2); Bilirubin,Total 0.9 mg/dl (0.2-1); Globulin 4.4 gm/dl (2.5-4.0); Total Protein 7.9 gm/dl (6.4-8.2)
[2020-11-19] MEDS ORDERED: OPTIRAY 320 100ml IV ONE (12:57)
--- NOTE | 2020-11-19 13:23 | CT Scan Report ---
CT soft tissue neck w con CT DOSE: 510.56 mGy.cm CLINICAL HISTORY: Right-sided infection. Evaluate for abscess. TECHNIQUE: Helical images were acquired during intravenous administration of 94 cc of Optiray 320. A dose lowering technique was utilized adhering to the principles of ALARA. COMPARISON STUDY: None. FINDINGS: The visualized portions of the lung apices are unremarkable. No thyroid masses are visualized. No salivary gland masses are visualized. Minimally prominent right jugulodigastric and posterior triangle lymph nodes are likely reactive. There are no fluid collections suspicious for abscess. There is no evidence of airway compromise. No mucosal space masses are visualized. There is right posterior lateral neck subcutaneous edema. This abuts the sternocleidomastoid muscle a nd posterior lateral neck musculature. There is minimal skin thickening. There are no fluid collectio ns to indicate an abscess. The findings are likely infectious/inflammatory. IMPRESSION: 1. Right posterior lateral soft tissue neck edema involving the skin subcutaneous tissues and extendi ng to the superficial muscular fascial margins. No fluid collections to indicate a drainable abscess. The findings are likely infectious/inflammatory basis. 2. No evidence of airway compromise. No pathologic neck masses identified ACT 112: Negative or not required by law. Electronically signed by: Chano Magana M.D. 11/19/2020 1:21 PM
[2020-11-19] MEDS ORDERED: cefTRIAXone SODIUM 2,000 MG/70 ML BAG IV STA (13:41)
[2020-11-19] MEDS ORDERED: CONSULT PHARMACY STA (14:25)
--- NOTE | 2020-11-19 14:28 | History & Physical Report ---
Date of Service November 19, 2020 Assessment & Plan (1) Cellulitis, neck: Pt is 50 y/o M with PMH insulin dependent DM II, dyslipidemia GERD, BPH presented to ER with complaint of right-sided neck redness and swelling x5 days, started after picking a pimple like area. C/O chills, N/V. H/O MRSA in past. In ER pt afebrile, P: 111, BP: 128/86, R: 18, 99% on RA. WBC: 16. Lactate: 1.4 In ER given 1L NSS Meets SIRS criteria Blood cultures pending MRSA swab Zosyn, daptomycin IVF AM labs (2) Diabetes mellitus, type II: Insulin-dependent DM II. A1c: 8.3 in 06/2020 Hold home meds and home insulin Basal bolus insulin per protocol A1c in a.m. (3) Dyslipidemia: Hold atorvastatin while on daptomycin (4) GERD (gastroesophageal reflux disease): Continue PPI (5) BPH (benign prostatic hyperplasia): Continue tamsulosin History ADD Outpatient records report patient with history ADD. Patient denies history however is on Ritalin which she reports is to "give him energy" Hold Ritalin for now DVT Prophylaxis -SCDs Full Code as per discussion with pt Follows with Dr Diaz for routine care Pt was seen and care coordinated with Dr Marks. See addendum History of Present Illness Chief Complaint: neck redness and swelling Primary Care Provider: Farhad Diaz MD Pt is 50 y/o M with PMH insulin dependent DM II, dyslipidemia GERD, BPH presented to ER with complaint of right-sided neck redness and swelling x5 days. Patient states 5 days ago had pimple-like lesion to right side of neck and reports picked at area. Patient states since with increased swelling and redness and discomfort. Denies any drainage. Also C/O nausea and vomited once this morning. Having chills, no recorded fever at home. H/O MRSA in past. Denies diaphoresis, diarrhea, constipation, FISHER, dizziness, syncope, vision changes, CP, SOB, orthopnea, palpitations, cough, sore throat, choking, otalgia, rhinorrhea, abdominal pain, paresthesias, weakness, extremity weakness, extremity edema, other rashes, urinary symptoms. Allergies Allergy/AdvReac Type Severity Reaction Status Date / Time No Known Allergies Allergy Unverified 11/19/20 13:24 Home Medications Medication Instructions Recorded Confirmed Type gabapentin 600 mg PO TID 05/09/18 11/19/20 History methylphenidate HCl [Ritalin LA] 30 mg PO DAILY 05/09/18 11/19/20 History omeprazole 20 mg PO Q2D 05/09/18 11/19/20 History aspirin 81 mg PO QAM 11/21/18 11/19/20 History insulin glargine [Lantus Solostar 40 unit SUBCUT HS 11/21/18 11/19/20 History U-100 Insulin] atorvastatin 40 mg PO Q3D 11/19/20 11/19/20 History dulaglutide [Trulicity] 0.75 mg SUBCUT WK 11/19/20 11/19/20 History metformin 500 mg PO BID 11/19/20 11/19/20 History sildenafil 100 mg PO UD PRN 11/19/20 11/19/20 History tamsulosin 0.4 mg PO DAILY 11/19/20 11/19/20 History Past Med/Surg History Medical History BPH (benign prostatic hyperplasia) Cellulitis Diabetes mellitus, type II Dyslipidemia Facial cellulitis GERD (gastroesophageal reflux disease) Surgical History History of hernia repair History of vasectomy Family History Other Diabetes Social History (Updated 11/19/20 @ 14:49 by Radha Patel PA-C) Smoking Status: Never smoker Hx Alcohol Use: No Hx Substance Use: Yes Prescribed Medications: Marijuana marital status: Single Current Living Situation: Family current occupational status: employed Feels Safe at Home: Yes Review of Systems Review of Systems: All systems reviewed & are unremarkable except as noted in HPI & below Physical Exam Physical Exam: General: mild distress secondary to neck discomfort, WDWN Head: normocephalic, atraumatic Eyes: conjunctiva non-injected, anicteric ENT: normal inspection external ears, nose, mucous membranes moist Neck: supple, trachea midline, right lateral neck with area of erythema and warmth with tenderness to palpation measures 6cm x 17 cm with central area of induration measuring 8cm x 5.5 cm with central scab Lungs: clear, no respiratory distress, no wheezing/rhonchi/rales CV: RRR, no murmur, no pretibial edema Abd: normal BS, soft, non-tender Ext: no cyanosis, no erythema Neuro: A&O x 3, no focal deficits noted, normal affect Skin: neck as above, otherwise warm, dry Results & Data Results & Data ([facility]) Vital Signs (Past 12 Hours) Vital Signs Temp Pulse Resp BP Pulse Ox 11/19/20 11:06 36.6 C 111 H 18 128/86 99 Laboratory Results Short CBC 11/19/20 Range/Units 12:15 WBC 16.24 H (4.8-10.8) K/uL Hgb 15.7 (14.0-18.0) g/dL Hct 42.4 (42-52) % Plt Count 387 (130-400) K/uL BMP 11/19/20 12:15 Sodium 137 Potassium 3.5 Chloride 104 Carbon Dioxide 25 BUN 15 Creatinine 0.85 Glucose 166 H Calcium 9.6 Liver Function 11/19/20 Range/Units 12:15 Total Bilirubin 0.9 (0.2-1) mg/dl AST 14 L (15-37) U/L ALT 27 (12-78) U/L Alkaline Phosphatase 118 H (45-117) U/L Albumin 3.5 (3.4-5.0) gm/dl Diagnostic Findings CT SOFT TISSUE NECK: IMPRESSION: 1. Right posterior lateral soft tissue neck edema involving the skin subcutaneous tissues and extending to the superficial muscular fascial margins. No fluid collections to indicate a drainable abscess. The findings are likely infectious/inflammatory basis. 2. No evidence of airway compromise. No pathologic neck masses identified Code Status & VTE Plan VTE Prophylaxis Plan VTE Prophylaxis will be ordered: Yes Supervising Physician Co-Signing Physician Notes History and physical exam performed by me, as detailed by Radha Patel PA-C 50-year-old man with history of DM type II on insulin, hyperlipidemia, GERD, BPH presents to the ER complaining of right-sided neck redness and swelling for 5 days. Associated with chills, nausea, vomiting. Physical exam notable for right-sided lateral neck swelling with erythema, tenderness and warmth to touch measuring about 6 x 17 cm with central area of induration measuring 8 x 5.5 cm with a central scab without fluctuance or drainage Lab work notable for leukocytosis of 16 CT of the neck showing right posterior lateral soft tissue neck edema involving the skin and subcutaneous tissue and extending to the superficial muscular fascial margins without fluid collection -Cellulitis of the neck in a patient with DM type II Met SIRS criteria with leukocytosis and tachycardia Lactate is normal Considering patient is high risk considering location of infection, diabetes, history of MRSA; will cover broadly for MRSA and Pseudomonas Wound margins marked. Continue IV fluids We will monitor and consider infectious disease consult in the morning. We will ensure proper glycemic control. Other plans as detailed above by Radha Patel PA-C
[2020-11-19] MEDS ORDERED: metroNIDAZOLE 500 MG/100 ML BAG IV SCH (14:30)
[2020-11-19] MEDS ORDERED: POTASSIUM CHLORIDE CRTAB 20 MEQ TABCR PO STA (14:42)
[2020-11-19] MEDS ORDERED: VANCOMYCIN CONSULT ACTIVE PRN (14:52)
[2020-11-19] MEDS ORDERED: PIPERACILL/TAZOBAC CONSULT ACTIVE PRN (14:53)
[2020-11-19] MEDS ORDERED: DAPTOmycin 275 MG in SYRINGE 0 ML IV ONE (15:00)
[2020-11-19] MEDS ORDERED: PIPERACILLIN/TAZOBACTAM 3.375 GM in DEXTROSE 5% 100 ML IV ONE (15:00)
[2020-11-19] MEDS ORDERED: VANCOMYCIN HCL 1,500 MG in SODIUM CHLORIDE 0.9% 500 ML IV ONE (15:00)
[2020-11-19] MEDS ORDERED: GLUCOSE 40% GEL 15 GM TUBE PO PRN (16:52)
[2020-11-19] MEDS ORDERED: ONDANSETRON INJ 2 MG/ML 2 ML VIAL IV PRN (16:52)
[2020-11-19] MEDS ORDERED: CARBOHYDRATES FOR HYPOGLYCEMIA PO PRN (16:52)
[2020-11-19] MEDS ORDERED: DEXTROSE 50% 50 ML SYRINGE IV PRN (16:52)
[2020-11-19] MEDS ORDERED: GLUCOSE 10 TABS/TUBE PO PRN (16:52)
[2020-11-19] MEDS ORDERED: GLUCAGON FOR INJ 1 MG VIAL SQ PRN (16:52)
[2020-11-19] MEDS: SODIUM CHLORIDE 0.9% 1000ML 1,000 ML IV SCH (17:21)
[2020-11-19] MEDS: oxyCODONE HCL IR 5 MG TAB (IMMEDIATE RELEASE) PO PRN ×2 (17:23→20:37)
[2020-11-19] MEDS: ACETAMINOPHEN 500 MG TAB PO SCH (17:42)
[2020-11-19] MEDS: INSULIN ASPART 100 UNITS/ML 3 ML PEN SC SCH ×2 (17:42→20:40)
[2020-11-19] MEDS: GABAPENTIN 300 MG CAP PO SCH (20:36)
[2020-11-19] MEDS ORDERED: INSULIN GLARGINE SOLOSTAR 100 UNITS/ML 3 ML PEN SC SCH (21:00)
[2020-11-19] MEDS: PIPERACILLIN/TAZOBACTAM 3.375 GM in DEXTROSE 5% 100 ML IV SCH (22:14)
[2020-11-20] MEDS: SODIUM CHLORIDE 0.9% 1000ML 1,000 ML IV SCH (03:31)
[2020-11-20] MEDS: PIPERACILLIN/TAZOBACTAM 3.375 GM in DEXTROSE 5% 100 ML IV SCH ×3 (05:01→22:08)
[2020-11-20] MEDS: ACETAMINOPHEN 500 MG TAB PO SCH ×3 (05:01→22:08)
[2020-11-20 06:54] LABS: Basophils # (auto) 0.03 K/uL (0-0.2); Basophils % (auto) 0.2 %; Eosinophils # (auto) 0.07 K/uL (0-0.5); Eosinophils % (auto) 0.4 %; Hematocrit (blood only) 40.5 % (42-52); Hemoglobin 14.3 g/dL (14.0-18.0); Immature Granulocytes # (auto) 0.07 K/uL (0.00-0.02); Immature Granulocytes % (auto) 0.4 %; Lymphocytes # (auto) 1.73 K/uL (1.2-3.4); Lymphocytes % (auto) 9.4 %; Mean Corpuscular Hemoglobin 28.7 pg (25-34); Mean Corpuscular Hgb Conc 35.3 g/dL (32-36); Mean Corpuscular Volume 81.3 fL (80-100); Mean Platelet Volume 10.1 fL (7.4-10.4); Monocytes % (auto) 7.6 %; Neutrophils # (auto) 15.18 K/uL (1.4-6.5); Platelet Count 289 K/uL (130-400); RDW Coefficient of Variation 12.1 % (11.5-14.5); RDW Standard Deviation 35.7 fL (36.4-46.3); Red Blood Count 4.98 M/uL (4.7-6.1); White Blood Count 18.48 K/uL (4.8-10.8)
[2020-11-20 07:20] LABS: Estimated Average Glucose 346 mg/dl; Hemoglobin A1C 13.7 % (4.5-5.6)
[2020-11-20 07:22] LABS: BUN Creatinine Ratio 18.2 (10-20); Calcium 8.4 mg/dl (8.5-10.1); Creatinine Clr Calc Pharmacy 107.1 ml/min; Est GFR (African American) 122.8; Potassium 3.6 mmol/L (3.5-5.1)
[2020-11-20] MEDS ORDERED: PHARMACY GLYCEMIC MGMT CONSULT PRN (08:29)
--- NOTE | 2020-11-20 08:56 | Pharmacy Report ---
Pharmacy Glycemic Short Note 2 - Date of Service November 20, 2020 - Glycemic Short BSG Results (Last 24 hours): 11/19/20 11/19/20 11/19/20 12:15 16:48 20:10 Glucose 166 H POC Glucose 126 H 144 H 11/20/20 11/20/20 11/20/20 04:59 06:34 07:45 Glucose 225 H POC Glucose 139 H 229 H OUTPATIENT ANTIDIABETIC REGIMEN: * Metformin ER 500 mg PO BIDM * Lantus 40 units SC HS * Trulicity 0.75 mg SC weekly * HbA1c = 13.7% (11/20/20) RISK FACTORS FOR INSULIN RESISTANCE: * Infection: Neck cellulitis on Daptomycin and Zosyn * Diet: T2DM ASSESSMENT: * 50 yo M admitted yesterday secondary to neck cellulitis. Pharmacy has been consulted for inpatient glycemic management assistance. Pertinent PMHx is unremarkable. * BSGs yesterday were 126 and 144 mg/dL. Patient took Trulicity dose and Lantus 40 units on Friday evening prior to admission. He received 3 units of bolus insulin and 10 units of Lantus last evening as an inpatient. * BSG at time of pharmacy consult this AM was 229 mg/dL. Hyperglycemia is likely due to basal deficiency. * Will give an additional 30 units of Lantus this AM to equal home dose of 40 units (10 u last evening + 30 u this morning). * Given HbA1c, may need to increase Lantus HS dose beyond current home dose. * Will attempt to transition back to 40 units HS like home dose by starting a BID scale and weaning the AM dose until all basal is administered at HS. * Postprandial increase in BSG last evening so will make the following changes to Novolog: * Tighten goal range to 110-140 mg/dL * Tighten correction factor to 15 * Tighten carb ratio to 5 * These are aggressive parameters given hyperglycemia this morning. May need to back off and basal deficiency is corrected. PLAN FOR INPATIENT GLYCEMIC CONTROL: * Hold outpatient oral diabetes medications * Basal insulin - increased * Lantus 30 units SQ x 1 this AM * Lantus 20-30 units SQ BID per scale (20 units for BSG < 150 mg/dL; 25 units for BSG 150-200 mg/dL; 30 units for BSG > 200 mg/dL) * Bolus insulin - tightened goal range, CF, CR * NovoLog per scale ACHS or Q6hrs while NPO * Goal Range: Low 110 mg/dL - High 140 mg/dL * Correction Factor: 15 mg/dL/unit * Nutritional / Prandial insulin per carb ratio of 1 unit per 5 grams CHO consumed PLAN FOR DISCHARGE: * To be determined
[2020-11-20] MEDS ORDERED: ATORVASTATIN 40 MG TAB PO SCH (09:00)
[2020-11-20] MEDS ORDERED: INSULIN GLARGINE SOLOSTAR 100 UNITS/ML 3 ML PEN SC ONE (09:00)
--- NOTE | 2020-11-20 09:35 | Hospitalist Progress Note ---
Date of Service November 20, 2020 Assessment & Plan (1) Cellulitis, neck: Pt is 50 y/o M with PMH insulin dependent DM II, dyslipidemia GERD, BPH presented to ER with complaint of right-sided neck redness and swelling x5 days, started after picking a pimple like area. C/O chills, N/V. H/O MRSA in past. In ER pt afebrile, P: 111, BP: 128/86, R: 18, 99% on RA. WBC: 16. Lactate: 1.4 In ER given 1L NSS Meets SIRS criteria Possible sepsis secondary to neck cellulitis Blood cultures pending Positive history of MRSA. Leukocytosis increased to 10 today We will continue Zosyn, daptomycin for now Continue IVF Considering high risk based on location, poorly controlled diabetes and history of MRSA, will appreciate infectious disease evaluation and recommendation (2) Diabetes mellitus, type II: Insulin-dependent DM II. A1c: 8.3 in 06/2020 Poorly controlled. Patient reports occasionally missing insulin Hold home meds and home insulin Basal bolus insulin per protocol A1c 13.7 Pharmacy consult for better glycemic management Provided diabetes education Will get hematology nurse educator consult (3) Dyslipidemia: Hold atorvastatin while on daptomycin (4) GERD (gastroesophageal reflux disease): Continue PPI (5) BPH (benign prostatic hyperplasia): Continue tamsulosin History ADD Outpatient records report patient with history ADD. Patient denies history however is on Ritalin which he reports is to "give him energy" Hold Ritalin for now DVT Prophylaxis -SCDs Full Code as per discussion with pt Admission and Anticipated Discharge Date Admission Date: November 19, 2020 Subjective Patient seen and examined. Patient still reports neck pain and some headache Reports some improvement in chills No fevers overnight Denies nausea vomiting Denies chest pain, cough, shortness of breath Denies abdominal pain, diarrhea, constipation Denies dysuria, frequency, urgency, hematuria Physical Exam Constitutional: + well hydrated; no acute distress Eyes: PERRL, conjunctivae normal, anicteric sclerae ENMT: external ear and nose normal, oropharynx normal Neck: Right lateral neck indurated area with erythema and tenderness. Measurement on admission was erythematous area 6cm x 17 cm with central area of induration measuring 8cm x 5.5 cm with central scab Still within margins of marking Respiratory: normal respiratory effort, lungs clear to auscultation Cardiovascular: Rate/Rhythm: regular rhythm and + tachycardic S1-S2 Gastrointestinal (Abdomen): normal bowel sounds, soft, nontender, no hepatosplenomegaly Musculoskeletal: no cyanosis or clubbing, extremities motor strength 5/5 Neurologic: PERRL, EOMI, accommodation nl, no face palsy, no dysarthria Psychiatric: A+Ox3, euthymic affect Results & Data Results & Data ([facility]) Vital Signs (Past 12 Hours) Vital Signs Temp Pulse Pulse Resp BP BP Pulse Ox 11/20/20 07:36 110 H 11/20/20 07:00 37.1 C 103 H 18 122/70 98 11/20/20 03:22 37.1 C 114 H 20 139/82 95 11/19/20 23:50 109 H 11/19/20 22:43 37.1 C 112 H 18 141/81 H 98 Laboratory Results Laboratory Results - last 24 hr 11/19/20 11/19/20 11/19/20 12:15 12:15 12:15 WBC 16.24 H RBC 5.37 Hgb 15.7 Hct 42.4 MCV 79.0 L MCH 29.2 MCHC 37.0 H RDW Std Deviation 34.6 L RDW Coeff of Gary 12.1 Plt Count 387 MPV 10.3 Immature Gran % (Auto) 0.2 Neut % (Auto) 85.4 Lymph % (Auto) 8.3 [place] % (Auto) 5.4 Eos % (Auto) 0.6 Baso % (Auto) 0.1 Neut # (Auto) 13.88 H Lymph # (Auto) 1.34 [place] # (Auto) 0.87 H Eos # (Auto) 0.09 Baso # (Auto) 0.02 Immature Gran # (Auto) 0.04 H Sodium 137 Potassium 3.5 Chloride 104 Carbon Dioxide 25 Anion Gap 8.0 BUN 15 Creatinine 0.85 Est Cr Clr Drug Dosing 98.3 Est GFR ( Amer) 118.6 Est GFR (Non-Af Amer) 102.3 BUN/Creatinine Ratio 17.8 Glucose 166 H POC Glucose Estimat Average Glucose Hemoglobin A1c Lactate 1.4 Calcium 9.6 Total Bilirubin 0.9 AST 14 L ALT 27 Alkaline Phosphatase 118 H Total Creatine Kinase Total Protein 7.9 Albumin 3.5 Globulin 4.4 H Albumin/Globulin Ratio 0.8 L Procalcitonin Nasal Screen MRSA (PCR) COVID-19 Eval Order SARS-CoV-2, RNA, NAAT 11/19/20 11/19/20 11/19/20 12:15 12:15 14:20 WBC RBC Hgb Hct MCV MCH MCHC RDW Std Deviation RDW Coeff of Gary Plt Count MPV Immature Gran % (Auto) Neut % (Auto) Lymph % (Auto) [place] % (Auto) Eos % (Auto) Baso % (Auto) Neut # (Auto) Lymph # (Auto) [place] # (Auto) Eos # (Auto) Baso # (Auto) Immature Gran # (Auto) Sodium Potassium Chloride Carbon Dioxide Anion Gap BUN Creatinine Est Cr Clr Drug Dosing Est GFR ( Amer) Est GFR (Non-Af Amer) BUN/Creatinine Ratio Glucose POC Glucose Estimat Average Glucose Hemoglobin A1c Lactate Calcium Total Bilirubin AST ALT Alkaline Phosphatase Total Creatine Kinase 63 Total Protein Albumin Globulin Albumin/Globulin Ratio Procalcitonin 0.31 Nasal Screen MRSA (PCR) COVID-19 Eval Order Covid19 [facility]Now [facility] SARS-CoV-2, RNA, NAAT 11/19/20 11/19/20 11/19/20 14:20 16:48 17:15 WBC RBC Hgb Hct MCV MCH MCHC RDW Std Deviation RDW Coeff of Gary Plt Count MPV Immature Gran % (Auto) Neut % (Auto) Lymph % (Auto) [place] % (Auto) Eos % (Auto) Baso % (Auto) Neut # (Auto) Lymph # (Auto) [place] # (Auto) Eos # (Auto) Baso # (Auto) Immature Gran # (Auto) Sodium Potassium Chloride Carbon Dioxide Anion Gap BUN Creatinine Est Cr Clr Drug Dosing Est GFR ( Amer) Est GFR (Non-Af Amer) BUN/Creatinine Ratio Glucose POC Glucose 126 H Estimat Average Glucose Hemoglobin A1c Lactate Calcium Total Bilirubin AST ALT Alkaline Phosphatase Total Creatine Kinase Total Protein Albumin Globulin Albumin/Globulin Ratio Procalcitonin Nasal Screen MRSA (PCR) Positive A COVID-19 Eval Order SARS-CoV-2, RNA, NAAT NEGATIVE 11/19/20 11/20/20 11/20/20 20:10 04:59 06:34 WBC 18.48 H RBC 4.98 Hgb 14.3 Hct 40.5 L MCV 81.3 MCH 28.7 MCHC 35.3 RDW Std Deviation 35.7 L RDW Coeff of Gary 12.1 Plt Count 289 MPV 10.1 Immature Gran % (Auto) 0.4 Neut % (Auto) 82.0 Lymph % (Auto) 9.4 [place] % (Auto) 7.6 Eos % (Auto) 0.4 Baso % (Auto) 0.2 Neut # (Auto) 15.18 H Lymph # (Auto) 1.73 [place] # (Auto) 1.40 H Eos # (Auto) 0.07 Baso # (Auto) 0.03 Immature Gran # (Auto) 0.07 H Sodium Potassium Chloride Carbon Dioxide Anion Gap BUN Creatinine Est Cr Clr Drug Dosing Est GFR ( Amer) Est GFR (Non-Af Amer) BUN/Creatinine Ratio Glucose POC Glucose 144 H 139 H Estimat Average Glucose Hemoglobin A1c Lactate Calcium Total Bilirubin AST ALT Alkaline Phosphatase Total Creatine Kinase Total Protein Albumin Globulin Albumin/Globulin Ratio Procalcitonin Nasal Screen MRSA (PCR) COVID-19 Eval Order SARS-CoV-2, RNA, NAAT 11/20/20 11/20/20 11/20/20 06:34 06:34 07:45 WBC RBC Hgb Hct MCV MCH MCHC RDW Std Deviation RDW Coeff of Gary Plt Count MPV Immature Gran % (Auto) Neut % (Auto) Lymph % (Auto) [place] % (Auto) Eos % (Auto) Baso % (Auto) Neut # (Auto) Lymph # (Auto) [place] # (Auto) Eos # (Auto) Baso # (Auto) Immature Gran # (Auto) Sodium 133 L Potassium 3.6 Chloride 100 Carbon Dioxide 26 Anion Gap 7.0 BUN 14 Creatinine 0.78 Est Cr Clr Drug Dosing 107.1 Est GFR ( Amer) 122.8 Est GFR (Non-Af Amer) 106.0 BUN/Creatinine Ratio 18.2 Glucose 225 H POC Glucose 229 H Estimat Average Glucose 346 Hemoglobin A1c 13.7 H Lactate Calcium 8.4 L Total Bilirubin AST ALT Alkaline Phosphatase Total Creatine Kinase Total Protein Albumin Globulin Albumin/Globulin Ratio Procalcitonin Nasal Screen MRSA (PCR) COVID-19 Eval Order SARS-CoV-2, RNA, NAAT
[2020-11-20] MEDS: ASPIRIN 81 MG ECTAB PO SCH (09:36)
[2020-11-20] MEDS: TAMSULOSIN HCL 0.4 MG CAP PO SCH (09:36)
[2020-11-20] MEDS: PANTOprazole 40 MG TAB PO SCH (09:37)
[2020-11-20] MEDS: GABAPENTIN 300 MG CAP PO SCH ×3 (09:37→22:08)
[2020-11-20] MEDS: INSULIN ASPART 100 UNITS/ML 3 ML PEN SC SCH ×4 (09:46→22:09)
[2020-11-20] MEDS: HYDROmorphone INJ 0.5 MG/0.5 ML SYR IV PRN ×2 (12:02→22:09)
[2020-11-20] MEDS: DAPTOmycin 275 MG in SYRINGE 0 ML IV SCH (17:27)
[2020-11-20] MEDS: INSULIN GLARGINE SOLOSTAR 100 UNITS/ML 3 ML PEN SC SCH (22:08)
[2020-11-21] MEDS: HYDROmorphone INJ 0.5 MG/0.5 ML SYR IV PRN ×5 (02:13→22:29)
[2020-11-21] MEDS ORDERED: INSULIN ASPART 100 UNITS/ML 3 ML PEN SC ONE (02:15)
[2020-11-21] MEDS: ACETAMINOPHEN 500 MG TAB PO SCH ×3 (05:47→22:22)
[2020-11-21] MEDS: PIPERACILLIN/TAZOBACTAM 3.375 GM in DEXTROSE 5% 100 ML IV SCH ×3 (05:47→22:22)
[2020-11-21 06:45] LABS: Hematocrit (blood only) 42.4 % (42-52); Hemoglobin 14.8 g/dL (14.0-18.0); Mean Corpuscular Hgb Conc 34.9 g/dL (32-36); Mean Platelet Volume 9.8 fL (7.4-10.4); Platelet Count 314 K/uL (130-400); RDW Coefficient of Variation 12.1 % (11.5-14.5); RDW Standard Deviation 37.1 fL (36.4-46.3); Red Blood Count 5.11 M/uL (4.7-6.1); White Blood Count 17.23 K/uL (4.8-10.8)
[2020-11-21 07:21] LABS: BUN Creatinine Ratio 21.4 (10-20); Calcium 8.8 mg/dl (8.5-10.1); Creatinine Clr Calc Pharmacy 90.8 ml/min; Est GFR (African American) 112.8; Est GFR (Non-African American) 97.3; Potassium 3.7 mmol/L (3.5-5.1)
[2020-11-21] MEDS: INSULIN ASPART 100 UNITS/ML 3 ML PEN SC SCH ×4 (07:57→20:36)
[2020-11-21] MEDS: INSULIN GLARGINE SOLOSTAR 100 UNITS/ML 3 ML PEN SC SCH (07:58)
[2020-11-21] MEDS: GABAPENTIN 300 MG CAP PO SCH ×3 (08:05→20:39)
[2020-11-21] MEDS: ASPIRIN 81 MG ECTAB PO SCH (08:06)
[2020-11-21] MEDS: TAMSULOSIN HCL 0.4 MG CAP PO SCH (08:06)
--- NOTE | 2020-11-21 10:30 | Pharmacy Report ---
Pharmacy Glycemic Short Note 2 - Date of Service November 21, 2020 - Glycemic Short BSG Results (Last 24 hours): 11/20/20 11/20/20 11/20/20 11:37 16:55 20:39 Glucose POC Glucose 199 H 102 H 132 H 11/21/20 11/21/20 11/21/20 01:53 06:23 07:39 Glucose 159 H POC Glucose 229 H 154 H OUTPATIENT ANTIDIABETIC REGIMEN: * Metformin ER 500 mg PO BIDM * Lantus 40 units SC HS * Trulicity 0.75 mg SC weekly * HbA1c = 13.7% (11/20/20) RISK FACTORS FOR INSULIN RESISTANCE: * Infection: Neck cellulitis on Daptomycin and Zosyn * Diet: T2DM ASSESSMENT: 11/21: * BSGs yesterday were [phone] mg/dL, acceptable * Received 50 units of basal insulin and 40 units of bolus insulin * Asked for a snack overnight which the RN checked a blood sugar and administered loosened Novolog parameters for * Fasting BSG this AM is greatly improved to 154 mg/dL * Will decrease total basal dose today given BID * Transitioning to once daily basal insulin given at HS to match home regimen * Depending on postprandial trends today, bolus insulin parameters may need loosened 11/20: * 50 yo M admitted yesterday secondary to neck cellulitis. Pharmacy has been consulted for inpatient glycemic management assistance. Pertinent PMHx is unremarkable. * BSGs yesterday were 126 and 144 mg/dL. Patient took Trulicity dose and Lantus 40 units on Friday evening prior to admission. He received 3 units of bolus insulin and 10 units of Lantus last evening as an inpatient. * BSG at time of pharmacy consult this AM was 229 mg/dL. Hyperglycemia is likely due to basal deficiency. * Will give an additional 30 units of Lantus this AM to equal home dose of 40 units (10 u last evening + 30 u this morning). * Given HbA1c, may need to increase Lantus HS dose beyond current home dose. * Will attempt to transition back to 40 units HS like home dose by starting a BID scale and weaning the AM dose until all basal is administered at HS. * Postprandial increase in BSG last evening so will make the following changes to Novolog: * Tighten goal range to 110-140 mg/dL * Tighten correction factor to 15 * Tighten carb ratio to 5 * These are aggressive parameters given hyperglycemia this morning. May need to back off and basal deficiency is corrected. PLAN FOR INPATIENT GLYCEMIC CONTROL: * Hold outpatient oral diabetes medications * Basal insulin - decreased * Lantus 25 units SQ x 1 this AM * Lantus 15 units SQ x 1 this PM * Bolus insulin - no change * NovoLog per scale ACHS or Q6hrs while NPO * Goal Range: Low 110 mg/dL - High 140 mg/dL * Correction Factor: 15 mg/dL/unit * Nutritional / Prandial insulin per carb ratio of 1 unit per 5 grams CHO consumed PLAN FOR DISCHARGE: * HbA1c from this admission is 13.7% which is above goal. Patient admits to non- compliance due to work and fear of needles, per CDE. * He will likely require adjustments to insulin regimen upon discharge.
--- NOTE | 2020-11-21 10:30 | Hospitalist Progress Note ---
Date of Service November 21, 2020 Assessment & Plan (1) Cellulitis, neck: 50 y/o M with PMH insulin dependent DM II, dyslipidemia GERD, BPH presented to ER with complaint of right-sided neck redness and swelling x5 days, started after picking a pimple like area. C/O chills, N/V. H/O MRSA in past. In ER pt afebrile, P: 111, BP: 128/86, R: 18, 99% on RA. WBC: 16. Lactate: 1.4 In ER given 1L NSS Meets SIRS criteria Possible sepsis secondary to neck cellulitis Blood cultures negative so far Positive history of MRSA. Leukocytosis mildly improved today We will continue Zosyn, daptomycin for now Continue IVF Considering high risk based on location, poorly controlled diabetes and history of MRSA, will appreciate infectious disease evaluation and recommendation (2) Diabetes mellitus, type II: Insulin-dependent DM II. A1c: 8.3 in 06/2020 Poorly controlled. Patient reports occasionally missing insulin Hold home meds and home insulin A1c 13.7 Insulin per protocol Pharmacy on board for better glycemic management Provided diabetes education Get ict educator consult (3) Dyslipidemia: Hold atorvastatin while on daptomycin (4) GERD (gastroesophageal reflux disease): Continue PPI (5) BPH (benign prostatic hyperplasia): Continue tamsulosin History ADD Outpatient records report patient with history ADD. Patient denies history however is on Ritalin which he reports is to "give him energy" Hold Ritalin for now DVT Prophylaxis -SCDs, ambulate Admission and Anticipated Discharge Date Admission Date: November 20, 2020 Subjective Patient seen and examined Reports chills remarkably improved Still has neck pain and some headache No fevers, chills, nausea, vomiting No abdominal pain, diarrhea No chest pain, cough, shortness of breath Physical Exam Constitutional: + well hydrated; no acute distress Eyes: PERRL, conjunctivae normal, anicteric sclerae ENMT: external ear and nose normal, oropharynx normal Neck: Right lateral neck indurated area with erythema and tenderness. Very small purulent stain on dressing No drainage noted with expression Erythema and induration still within margins of marking Respiratory: normal respiratory effort, lungs clear to auscultation Cardiovascular: Rate/Rhythm: regular rate and regular rhythm S1 S2 Gastrointestinal (Abdomen): normal bowel sounds, soft, nontender, no hepatosplenomegaly Musculoskeletal: no cyanosis or clubbing, extremities motor strength 5/5 Neurologic: PERRL, EOMI, accommodation nl, no face palsy, no dysarthria Psychiatric: A+Ox3, euthymic affect Results & Data Results & Data ([facility]) Vital Signs (Past 12 Hours) Vital Signs Temp Pulse Pulse Resp BP BP Pulse Ox 11/21/20 07:58 37.1 C 104 H 18 128/79 93 11/21/20 04:00 37.1 C 104 H 20 132/85 96 11/21/20 01:09 103 H 11/20/20 23:43 37.1 C 106 H 20 130/80 95 Laboratory Results Laboratory Results - last 24 hr 11/20/20 11/20/20 11/21/20 16:55 20:39 01:53 WBC RBC Hgb Hct MCV MCH MCHC RDW Std Deviation RDW Coeff of Gary Plt Count MPV Sodium Potassium Chloride Carbon Dioxide Anion Gap BUN Creatinine Est Cr Clr Drug Dosing Est GFR ( Amer) Est GFR (Non-Af Amer) BUN/Creatinine Ratio Glucose POC Glucose 102 H 132 H 229 H Calcium 11/21/20 11/21/20 11/21/20 06:23 06:23 07:39 WBC 17.23 H RBC 5.11 Hgb 14.8 Hct 42.4 MCV 83.0 MCH 29.0 MCHC 34.9 RDW Std Deviation 37.1 RDW Coeff of Gary 12.1 Plt Count 314 MPV 9.8 Sodium 135 L Potassium 3.7 Chloride 101 Carbon Dioxide 30 Anion Gap 4.0 BUN 20 H Creatinine 0.92 Est Cr Clr Drug Dosing 90.8 Est GFR ( Amer) 112.8 Est GFR (Non-Af Amer) 97.3 BUN/Creatinine Ratio 21.4 H Glucose 159 H POC Glucose 154 H Calcium 8.8 11/21/20 11:36 WBC RBC Hgb Hct MCV MCH MCHC RDW Std Deviation RDW Coeff of Gary Plt Count MPV Sodium Potassium Chloride Carbon Dioxide Anion Gap BUN Creatinine Est Cr Clr Drug Dosing Est GFR ( Amer) Est GFR (Non-Af Amer) BUN/Creatinine Ratio Glucose POC Glucose 97 Calcium
[2020-11-21] MEDS: DAPTOmycin 275 MG in SYRINGE 0 ML IV SCH (16:39)
[2020-11-21] MEDS ORDERED: INSULIN GLARGINE SOLOSTAR 100 UNITS/ML 3 ML PEN SC ONE (21:00)
[2020-11-22] MEDS: HYDROmorphone INJ 0.5 MG/0.5 ML SYR IV PRN ×4 (02:34→18:05)
[2020-11-22] MEDS: PIPERACILLIN/TAZOBACTAM 3.375 GM in DEXTROSE 5% 100 ML IV SCH (05:42)
[2020-11-22] MEDS: ACETAMINOPHEN 500 MG TAB PO SCH ×3 (05:43→21:49)
[2020-11-22 07:24] LABS: Hematocrit (blood only) 40.7 % (42-52); Hemoglobin 14.1 g/dL (14.0-18.0); Mean Corpuscular Hemoglobin 28.5 pg (25-34); Mean Corpuscular Hgb Conc 34.6 g/dL (32-36); Mean Corpuscular Volume 82.2 fL (80-100); Platelet Count 336 K/uL (130-400); RDW Coefficient of Variation 12.1 % (11.5-14.5); RDW Standard Deviation 36.4 fL (36.4-46.3); Red Blood Count 4.95 M/uL (4.7-6.1); White Blood Count 10.36 K/uL (4.8-10.8)
[2020-11-22 07:52] LABS: Calcium 8.8 mg/dl (8.5-10.1); Est GFR (African American) 107.1; Est GFR (Non-African American) 92.4; Potassium 3.9 mmol/L (3.5-5.1)
[2020-11-22] MEDS ORDERED: INSULIN GLARGINE SOLOSTAR 100 UNITS/ML 3 ML PEN SC SCH ×2 (09:00→17:00)
[2020-11-22] MEDS: GABAPENTIN 300 MG CAP PO SCH ×3 (09:29→21:49)
[2020-11-22] MEDS: PANTOprazole 40 MG TAB PO SCH (09:29)
[2020-11-22] MEDS: TAMSULOSIN HCL 0.4 MG CAP PO SCH (09:29)
[2020-11-22] MEDS: ASPIRIN 81 MG ECTAB PO SCH (09:29)
[2020-11-22] MEDS: INSULIN ASPART 100 UNITS/ML 3 ML PEN SC SCH ×4 (09:31→21:48)
--- NOTE | 2020-11-22 10:47 | Pharmacy Report ---
Pharmacy Glycemic Short Note 2 - Date of Service November 22, 2020 - Glycemic Short BSG Results (Last 24 hours): 11/21/20 11/21/20 11/21/20 11:36 16:52 20:30 Glucose POC Glucose 97 241 H 222 H 11/22/20 11/22/20 06:40 08:05 Glucose 236 H POC Glucose 229 H OUTPATIENT ANTIDIABETIC REGIMEN: * Metformin ER 500 mg PO BIDM * Lantus 40 units SC HS * Trulicity 0.75 mg SC weekly * HbA1c = 13.7% (11/20/20) RISK FACTORS FOR INSULIN RESISTANCE: * Infection: Neck cellulitis on Daptomycin and Zosyn * Diet: T2DM ASSESSMENT: 11/22: * Patient received total of 98 units of insulin yesterday, BSGs trending up in evening * Fasting BSG elevated at 235 mg/dL - will give 35 units x 1 now and add small dose with dinner. Will tighten CF/CR * Plan to change to once daily basal insulin, likely add some overnight checks tonight and change to once daily basal tomorrow AM. Will then adjust dosing to evening time over the next following days to match home regimen 11/21: * BSGs yesterday were [phone] mg/dL, acceptable * Received 50 units of basal insulin and 40 units of bolus insulin * Asked for a snack overnight which the RN checked a blood sugar and adminis tered loosened Novolog parameters for * Fasting BSG this AM is greatly improved to 154 mg/dL * Will decrease total basal dose today given BID * Transitioning to once daily basal insulin given at HS to match home regimen * Depending on postprandial trends today, bolus insulin parameters may need loosened PLAN FOR INPATIENT GLYCEMIC CONTROL: * Hold outpatient oral diabetes medications * Basal insulin * Lantus 35 x 1 * Lantus 15 units with dinner * Bolus insulin - no change * NovoLog per scale ACHS or Q6hrs while NPO * Goal Range: Low 110 mg/dL - High 140 mg/dL * Correction Factor: 15 mg/dL/unit * Nutritional / Prandial insulin per carb ratio of 1 unit per 6 grams CHO consumed PLAN FOR DISCHARGE: * HbA1c from this admission is 13.7% which is above goal. * Per DM educator notes, patient reports missing basal insulin dose up to ~3 times weekly. Patient admits to non-compliance due to work and fear of needles * Would encourage better compliance on discharge. Adding novolog/meal time insulin would likely be best option for improvement in blood sugars/A1c as octavio thorpe is requiring about ~100 units of insulin/day during this hospital stay thus far * However, if patient not willing for multiple injections per day, would be reasonable to increase home basal dosing ~25% from 40 units to 50 units per day. Would ensure self monitoring of BSGs and ultimately patient would need follow up outpatient as regimen likely would need titrated
[2020-11-22] MEDS ORDERED: VANCOMYCIN CONSULT ACTIVE PRN (11:34)
[2020-11-22] MEDS ORDERED: VANCOMYCIN HCL 500 MG in SODIUM CHLORIDE 0.9% 250 ML IV SCH (11:45)
[2020-11-22] MEDS ORDERED: VANCOMYCIN HCL 1,500 MG in SODIUM CHLORIDE 0.9% 500 ML IV ONE (12:00)
--- NOTE | 2020-11-22 12:53 | Electrocardiogram Report ---
Test Reason : Blood Pressure : / mmHG Vent. Rate : 101 BPM Atrial Rate : 101 BPM P-R Int : 136 ms QRS Dur : 078 ms QT Int : 330 ms P-R-T Axes : 060 058 045 degrees QTc Int : 427 ms Sinus tachycardia Otherwise normal ECG No previous ECGs available Confirmed by Judson Euceda ([id number]) on 11/22/2020 12:53:30 PM Referred By: REFERRED SELF Confirmed By:Jose Euceda
--- NOTE | 2020-11-22 14:16 | Pharmacy Report ---
Pharmacy Abx Dose Short Note - Date of Service November 22, 2020 - Assessment & Plan Assessment 50 year old M changed from daptomycin to vancomycin for cellulitis Plan Vancomycin * Received last daptomycin dose 11/21 ~1600, plan to transition to vancomycin. Will give loading dose of vancomycin 1500 mg (~22 mg/kg/dose) x 1 * Will start vancomycin 1 gm iv q 8 hr per vancomycin AUC nomogram dosing * Will plan to collect trough prior to the 1200 dose on 11/23 to ensure t herapeutic Pharmacy will continue to follow and will adjust dose/frequency as necessary. Thank you.
--- NOTE | 2020-11-22 18:15 | Discharge Summary ---
Date of Service November 22, 2020 Admission HPI Per Admitting Provider Pt is 50 y/o M with PMH insulin dependent DM II, dyslipidemia GERD, BPH presented to ER with complaint of right-sided neck redness and swelling x5 days. Patient states 5 days ago had pimple-like lesion to right side of neck and reports picked at area. Patient states since with increased swelling and redness and discomfort. Denies any drainage. Also C/O nausea and vomited once this morning. Having chills, no recorded fever at home. H/O MRSA in past. Denies diaphoresis, diarrhea, constipation, FISHER, dizziness, syncope, vision changes, CP, SOB, orthopnea, palpitations, cough, sore throat, choking, otalgia, rhinorrhea, abdominal pain, paresthesias, weakness, extremity weakness, extremity edema, other rashes, urinary symptoms. Discharge Data Allergies Allergy/AdvReac Type Severity Reaction Status Date / Time No Known Allergies Allergy Unverified 11/19/20 13:24 Consultations 11/19/20 13:59 ED Decision to Admit Stat 11/21/20 08:39 Consult Infectious Diseases Routine Ordered Studies 11/19/20 11:54 CT soft tissue neck w con Stat Diabetes Follow up Diabetes Follow-up Needed for HgbA1c >9% Hospital Course (1) Cellulitis, neck: Patient is a 50 yr male with H/O insulin dependent DM II, dyslipidemia GERD, BPH presented to ER with complaint of right-sided neck redness and swelling x5 days, started after picking a pimple like area. C/O chills, N/V. H/O MRSA in past. Neck Cellulitis/Wound Possible sepsis -Neck CT:Right posterior lateral soft tissue neck edema involving the skin subcutaneous tissues and extending to the superficial muscular fascial margins. No fluid collections to indicate a drainable abscess. The findings are likely infectious/inflammatory basis. No evidence of airway compromise. No pathologic neck masses identified -Blood Cx: Negative to date -Wound Cx:MRSA -Continue IV Vancomycin -Plan to transition to PO Antibiotics upon discharge -Appreciate Infectious disease recommendations. -Denies any Pain (2) Diabetes mellitus, type II: Insulin-dependent DM II. A1c: 13.7 Poorly controlled. Non complaint Continue Insulin therapy Pharmacy to help with glycemic management Diabetes education Monitor BGs Lantus increased to 50 units at bedtime for better control of blood glucose levels. (3) Dyslipidemia: continue Lipitor (4) GERD (gastroesophageal reflux disease): Continue PPI (5) BPH (benign prostatic hyperplasia): Continue tamsulosin History ADD As per records On Ritalin DVT Px: SCDs Ambulate Discharge Plan Discharge Items Patient Disposition: Home - Self-Care Reason For Visit: CELLULITIS NECK Discharge Diagnosis: Neck Cellulitis Uncontrolled Diabetes Mellitus Condition on Discharge: Good Activity: Resume your previous activity Exercise/Sports: Gradually increase as tolerated Non-emergency contact: Primary Care Provider Call non-emergency contact if: you have any medication questions, your symptoms worsen, your pain is concerning for you, you have a fever, your wound has increased redness, your wound has increased drainage and your wound pain has increased Follow-up/Referrals: Farhad Diaz MD [Primary Care Provider] - (Date & Time 11/27/2020 3:20 PM Provider Farhad Diaz MD Department [facility] ) Diet: Carb Consistent or DM2 Addtl Attending Provider Instructions: Follow-up with your primary care physician on 11/27/2020 3:20 PM Completed antibiotic course (Bactrim DS) for 8 more days as prescribed Your Lantus is increased from 40 units to 50 units at bedtime for better control of your blood glucose levels. Discussed with your physician for adjustment of insulin therapy as recommended Monitor your blood glucose levels regularly Change wound dressing daily as advised. Seek immediate medical attention if your symptoms reoccur or worsen Pending Studies at Discharge: No Stand-Alone Forms: My [employer], Smoking Cessation Medications and DC Order Prescriptions: Continued gabapentin 300 mg capsule 600 mg PO TID RF: 0 omeprazole 20 mg capsule,delayed release(DR/EC) 20 mg PO Q2D RF: 0 methylphenidate HCl [Ritalin LA] 30 mg Capsule,Er Biphasic 50-50 30 mg PO DAILY RF: 0 aspirin 81 mg Tablet,Delayed Release (Dr/Ec) 81 mg PO QAM RF: 0 sildenafil 100 mg tablet 100 mg PO UD PRN (Reason: Erectile Dysfunction) RF: 0 Trulicity 0.75 mg/0.5 mL pen injector 0.75 mg SUBCUT WK RF: 0 metformin 500 mg tablet extended release 24 hr 500 mg PO BID RF: 0 atorvastatin 40 mg tablet 40 mg PO Q3D RF: 0 tamsulosin 0.4 mg capsule 0.4 mg PO DAILY RF: 0 Changed Lantus Solostar U-100 Insulin 100 unit/mL (3 mL) insulin pen 50 unit subcut HS Qty: 0 RF: 0 Discharge Orders: Discharge Order (Routine); Ordered 11/25/20 Ordered By: Enmanuel Goss/Other Patient Handouts: Discharge Instructions for Cellulitis Admission Data Admit Date/Time: 11/20/20 17:52 Attending Provider: Enmanuel Tillman Admit Provider: Pooja Marks I. Primary Care Provider: Farhad Diaz Other Providers: Adriana Sidhu Other Interventions: Discharge Summary Assessment (RN) Last Done: 11/25/20 09:52
--- NOTE | 2020-11-22 18:18 | Hospitalist Progress Note ---
Date of Service November 22, 2020 Assessment & Plan (1) Cellulitis, neck: 50 y/o M with PMH insulin dependent DM II, dyslipidemia GERD, BPH presented to ER with complaint of right-sided neck redness and swelling x5 days, started after picking a pimple like area. C/O chills, N/V. H/O MRSA in past. In ER pt afebrile, P: 111, BP: 128/86, R: 18, 99% on RA. WBC: 16. Lactate: 1.4 In ER given 1L NSS Meets SIRS criteria Possible sepsis secondary to neck cellulitis Cultures remain negative thus far. Patient is afebrile. White count is within normal limit. Patient infectious disease input continue daptomycin and Zosyn. Start patient on vancomycin. Transition to oral prior to discharge. (2) Diabetes mellitus, type II: Insulin-dependent DM II. A1c: 8.3 in 06/2020 Poorly controlled. Patient reports occasionally missing insulin Hold home meds and home insulin A1c 13.7 Insulin per protocol Pharmacy on board for better glycemic management Provided diabetes education Get clinical unit educator consult (3) Dyslipidemia: Restart Lipitor (4) GERD (gastroesophageal reflux disease): Continue PPI (5) BPH (benign prostatic hyperplasia): Continue tamsulosin History ADD Outpatient records report patient with history ADD. Patient denies history however is on Ritalin which he reports is to "give him energy" Hold Ritalin for now DVT Prophylaxis -SCDs, ambulate Admission and Anticipated Discharge Date Admission Date: November 20, 2020 Subjective Doing okay this morning. Denies any fever, chills or diaphoresis. Does have some neck discomfort. Denies any chest pain or abdominal pain. Rest of the review of system is negative. Review of Systems Review of Systems: All systems reviewed & are unremarkable except as noted in HPI & below Physical Exam Physical Exam: General: A&Ox3 HENT: NCAT, MMM, EOMI Eyes: PERRLA Neck: Supple, right posterior wound dressings intact, erythema site has been marked and appears to be improved CVS: normal rate and rhythm Resp: b/l good breath sounds Abdomen: Soft, ND/NT, +BS Extremities: No c/c/e Neuro: face symmetric, strength grossly equal, no focal deficit Skin: warm and dry, no rashes/lesions/errythema MSK: normal ROM, no joint swelling/erythema Results & Data Results & Data ([facility]) Vital Signs (Past 12 Hours) Vital Signs Temp Pulse Resp BP Pulse Ox 11/22/20 15:55 36.6 C 86 18 121/70 96 11/22/20 08:08 36.6 C 92 H 18 118/78 94
[2020-11-22] MEDS: VANCOMYCIN HCL 1,000 MG in SODIUM CHLORIDE 0.9% 250 ML IV SCH (20:40)
[2020-11-23] MEDS ORDERED: INSULIN ASPART 100 UNITS/ML 3 ML PEN SC SCH
[2020-11-23] MEDS: ACETAMINOPHEN 500 MG TAB PO SCH ×3 (05:03→23:01)
[2020-11-23] MEDS: VANCOMYCIN HCL 1,000 MG in SODIUM CHLORIDE 0.9% 250 ML IV SCH ×3 (05:03→20:58)
[2020-11-23 06:56] LABS: Creatinine Clr Calc Pharmacy 103.1 ml/min; Est GFR (Non-African American) 104.4
[2020-11-23] MEDS: GABAPENTIN 300 MG CAP PO SCH ×3 (07:55→21:22)
[2020-11-23] MEDS: ASPIRIN 81 MG ECTAB PO SCH (08:43)
[2020-11-23] MEDS: INSULIN ASPART 100 UNITS/ML 3 ML PEN SC SCH ×4 (08:44→21:24)
[2020-11-23] MEDS: TAMSULOSIN HCL 0.4 MG CAP PO SCH (09:43)
[2020-11-23] MEDS: HYDROmorphone INJ 0.5 MG/0.5 ML SYR IV PRN ×3 (11:02→22:59)
[2020-11-23] MEDS ORDERED: VANCOMYCIN TROUGH ONE (11:30)
--- NOTE | 2020-11-23 12:23 | Hospitalist Progress Note ---
Date of Service November 23, 2020 Assessment & Plan (1) Cellulitis, neck: 50 y/o M with PMH insulin dependent DM II, dyslipidemia GERD, BPH presented to ER with complaint of right-sided neck redness and swelling x5 days, started after picking a pimple like area. C/O chills, N/V. H/O MRSA in past. In ER pt afebrile, P: 111, BP: 128/86, R: 18, 99% on RA. WBC: 16. Lactate: 1.4 In ER given 1L NSS Meets SIRS criteria Possible sepsis secondary to neck cellulitis Neck cultures growing MRSA. Overall he continues to improve. Swelling/erythema has improved. However, still significant size of the mass persists. Will give 1 more day of vancomycin. Discharged on oral as per infectious disease recommendations. Dilaudid and oxycodone for pain control (2) Diabetes mellitus, type II: Insulin-dependent DM II. A1c: 8.3 in 06/2020 Poorly controlled. Patient reports occasionally missing insulin Hold home meds and home insulin A1c 13.7 Insulin per protocol Pharmacy on board for better glycemic management Provided diabetes education Get music educator consult (3) Dyslipidemia: Restart Lipitor (4) GERD (gastroesophageal reflux disease): Continue PPI (5) BPH (benign prostatic hyperplasia): Continue tamsulosin History ADD Outpatient records report patient with history ADD. Patient denies history however is on Ritalin which he reports is to "give him energy" Hold Ritalin for now DVT Prophylaxis -SCDs, ambulate Admission and Anticipated Discharge Date Admission Date: November 20, 2020 Subjective Overall patient is doing okay. No new complaints. His primary issue is neck discomfort at the wound. Remains afebrile. Rest of the review of system is negative. Review of Systems Review of Systems: All systems reviewed & are unremarkable except as noted in HPI & below Physical Exam Physical Exam: General: A&Ox3 HENT: NCAT, MMM, EOMI Eyes: PERRLA Neck: Supple, right sided wound is examined, pus secretio noted, erythema is improved as well as the swelling but significant size still present CVS: normal rate and rhythm Resp: b/l good breath sounds Abdomen: Soft, ND/NT, +BS Extremities: No c/c/e Neuro: face symmetric, strength grossly equal, no focal deficit Skin: warm and dry, no rashes/lesions/errythema MSK: normal ROM, no joint swelling/erythema Results & Data Results & Data ([facility]) Vital Signs (Past 12 Hours) Vital Signs Temp Pulse Resp BP Pulse Ox 11/23/20 08:20 36.8 C 85 16 117/69 96
--- NOTE | 2020-11-23 12:25 | Pharmacy Report ---
Pharmacy Abx Dose Short Note - Date of Service November 23, 2020 - Assessment & Plan Assessment 50 year old M receiving vancomycin for treatment of MRSA cellulitis of neck Day # 2 of antimicrobial therapy. Neck culture growing MRSA, sensitive to vancomycin and several PO options. Plan is to continue IV for now with transition to oral prior to discharge. Plan Vancomycin * Trough level of 16.5 mcg/mL is therapeutic * 0400 dose of vanco given 1 hour late, so real trough may be slightly less than this * Continue dose of 1000 mg IV every 8 hours * Goal trough level for cellulitis : 10 to 20 mcg/mL * Follow-up trough level ordered for: 11/25/20 Pharmacy will continue to follow and will adjust dose/frequency as necessary. Thank you.
[2020-11-23] MEDS ORDERED: INSULIN GLARGINE SOLOSTAR 100 UNITS/ML 3 ML PEN SC SCH (12:30)
[2020-11-24] MEDS: VANCOMYCIN HCL 1,000 MG in SODIUM CHLORIDE 0.9% 250 ML IV SCH ×3 (04:58→20:59)
[2020-11-24] MEDS: ACETAMINOPHEN 500 MG TAB PO SCH ×3 (05:00→21:04)
[2020-11-24 06:55] LABS: Creatinine Clr Calc Pharmacy 108.5 ml/min; Est GFR (African American) 123.5; Est GFR (Non-African American) 106.6
[2020-11-24] MEDS: TAMSULOSIN HCL 0.4 MG CAP PO SCH (09:28)
[2020-11-24] MEDS: INSULIN ASPART 100 UNITS/ML 3 ML PEN SC SCH ×4 (09:28→21:24)
[2020-11-24] MEDS: GABAPENTIN 300 MG CAP PO SCH ×3 (09:29→21:07)
[2020-11-24] MEDS: PANTOprazole 40 MG TAB PO SCH (09:29)
[2020-11-24] MEDS: ASPIRIN 81 MG ECTAB PO SCH (09:29)
--- NOTE | 2020-11-24 13:07 | Pharmacy Report ---
Pharmacy Glycemic Short Note 2 - Date of Service November 24, 2020 - Glycemic Short BSG Results (Last 24 hours): 11/23/20 11/23/20 11/24/20 17:12 20:46 08:05 POC Glucose 113 H 120 H 189 H 11/24/20 12:02 POC Glucose 166 H OUTPATIENT ANTIDIABETIC REGIMEN: * Metformin ER 500 mg PO BIDM * Lantus 40 units SC HS * Trulicity 0.75 mg SC weekly * HbA1c = 13.7% (11/20/20) ASSESSMENT: 11/24: * BSGs reasonably well controlled yesterday at 159, 167, 113, and 120 mg/dL * Patient received 90 units of insulin (45 units of basal and 45 units of prandial/correctional bolus insulin) * Continues on vancomycin for treatment of MRSA neck cellulitis * Fasting BSG of 189 mg/dL this morning -> will increase Lantus today 11/21: * BSGs yesterday were [phone] mg/dL, acceptable * Received 50 units of basal insulin and 40 units of bolus insulin * Asked for a snack overnight which the RN checked a blood sugar and administered loosened Novolog parameters for * Fasting BSG this AM is greatly improved to 154 mg/dL * Will decrease total basal dose today given BID * Transitioning to once daily basal insulin given at HS to match home regimen * Depending on postprandial trends today, bolus insulin parameters may need loosened PLAN FOR INPATIENT GLYCEMIC CONTROL: * Hold outpatient oral diabetes medications * Basal insulin - increase * Lantus 50 units SC at dinnertime this evening, then will schedule at HS thereafter * Bolus insulin - no change * NovoLog per scale ACHS or Q6hrs while NPO * Goal Range: Low 110 mg/dL - High 140 mg/dL * Correction Factor: 15 mg/dL/unit * Nutritional / Prandial insulin per carb ratio of 1 unit per 6 grams CHO consumed PLAN FOR DISCHARGE: * HbA1c from this admission is 13.7% which is above goal. * Per DM educator notes, patient reports missing basal insulin dose up to ~3 times weekly. Patient admits to non-compliance due to work and fear of needles * Would encourage better compliance on discharge. Adding novolog/meal time insulin would likely be best option for improvement in blood sugars/A1c as patient is requiring about ~100 units of insulin/day during this hospital stay thus far * However, if patient not willing for multiple injections per day, would be reasonable to increase home basal dosing ~25% from 40 units to 50 units per day. Would ensure self monitoring of BSGs and ultimately patient would need follow up outpatient as regimen likely would need titrated * The above plan was originally made by pharmacist on 11/22/20 - remains appropriate at this time
[2020-11-24] MEDS ORDERED: INSULIN GLARGINE SOLOSTAR 100 UNITS/ML 3 ML PEN SC SCH (17:30)
--- NOTE | 2020-11-24 18:23 | Hospitalist Progress Note ---
Date of Service November 24, 2020 Assessment & Plan (1) Cellulitis, neck: Patient is a 50 yr male with H/O insulin dependent DM II, dyslipidemia GERD, BPH presented to ER with complaint of right-sided neck redness and swelling x5 days, started after picking a pimple like area. C/O chills, N/V. H/O MRSA in past. Neck Cellulitis/Wound Possible sepsis -Neck CT:Right posterior lateral soft tissue neck edema involving the skin subcutaneous tissues and extending to the superficial muscular fascial margins. No fluid collections to indicate a drainable abscess. The findings are likely infectious/inflammatory basis. No evidence of airway compromise. No pathologic neck masses identified -Blood Cx: Negative to date -Wound Cx:MRSA -Continue IV Vancomycin -Plan to transition to PO Antibiotics as able -Appreciate Infectious disease recommendations. -Pain is controlled (2) Diabetes mellitus, type II: Insulin-dependent DM II. A1c: 13.7 Poorly controlled. Patient reports occasionally missing insulin Continue Insulin therapy Pharmacy to help with glycemic management Diabetes education Monitor BGs (3) Dyslipidemia: Resume Lipitor (4) GERD (gastroesophageal reflux disease): Continue PPI (5) BPH (benign prostatic hyperplasia): Continue tamsulosin History ADD As per records On Ritalin DVT Px: SCDs Ambulate Admission and Anticipated Discharge Date Admission Date: November 20, 2020 Subjective Patient is seen and examined at bedside Patient denies any significant leg pain at the site of the wound Eager to get discharged Admits to having discharge from the neck wound Denies chest pain, shortness of breath, dizziness, nausea, abdominal pain Offers no other complaints Review of Systems Review of Systems: All systems reviewed & are unremarkable except as noted in HPI & below Physical Exam Physical Exam: Physical Exam: Vitals signs as noted above General Appearance:Moderately built and nourished, no apparent distress Head: normocephalic, Atraumatic Eyes: normal inspection, EOMI Neck: supple, Trachea midline, +Right posterior wound with erythema , swelling Respiratory/Chest: Normal breath sounds, CTA Cardiovascular: S1, S2, No murmur Abdomen/GI:Soft, Non tender, Bowel sounds present Extremities/Musculoskelatal:normal inspection, no edema Neurologic/Psych:AAOX3, grossly no focal neurological deficits Skin: normal color, warm Results & Data Results & Data ([facility]) Vital Signs (Past 12 Hours) Vital Signs Temp Pulse Resp BP BP Pulse Ox 11/24/20 15:35 36.7 C 95 H 16 127/75 96 11/24/20 07:42 36.7 C 89 16 118/79 98 Laboratory Results BMP 11/24/20 05:24 Creatinine 0.77
[2020-11-24] MEDS ORDERED: ATORVASTATIN 40 MG TAB PO SCH (19:00)
[2020-11-25] MEDS ORDERED: VANCOMYCIN TROUGH ONE (03:30)
[2020-11-25 04:03] LABS: Hematocrit (blood only) 42.3 % (42-52); Hemoglobin 14.9 g/dL (14.0-18.0); Mean Corpuscular Hemoglobin 29.1 pg (25-34); Mean Corpuscular Hgb Conc 35.2 g/dL (32-36); Mean Corpuscular Volume 82.6 fL (80-100); Mean Platelet Volume 9.3 fL (7.4-10.4); Platelet Count 455 K/uL (130-400); RDW Coefficient of Variation 12.1 % (11.5-14.5); RDW Standard Deviation 36.6 fL (36.4-46.3); Red Blood Count 5.12 M/uL (4.7-6.1); White Blood Count 9.76 K/uL (4.8-10.8)
[2020-11-25] MEDS: VANCOMYCIN HCL 1,000 MG in SODIUM CHLORIDE 0.9% 250 ML IV SCH (04:13)
[2020-11-25 04:23] LABS: Calcium 8.4 mg/dl (8.5-10.1); Creatinine Clr Calc Pharmacy 88.9 ml/min; Est GFR (African American) 109.9; Est GFR (Non-African American) 94.8; Magnesium 1.9 mg/dl (1.8-2.4); Potassium 4.6 mmol/L (3.5-5.1)
[2020-11-25] MEDS: ACETAMINOPHEN 500 MG TAB PO SCH (05:40)
--- NOTE | 2020-11-25 08:34 | Pharmacy Report ---
Pharmacy Abx Dose Short Note - Date of Service November 25, 2020 - Assessment & Plan Assessment * 50 year old M receiving vancomycin for treatment of MRSA cellulitis on neck 2nd wound * WBC wnl, afebrile * Renal function stable Vancomycin * Goal tough 15-20 mcg/mL * Repeat trough obtained 48 hours after initial trough still in goal range at 15.9 mcg/mL Plan * Continue vancomycin 1000 mg IV q8h * Repeat trough in 3-5 days, or sooner if renal function or clinical status changes Pharmacy will continue to follow and will adjust dose/frequency as necessary. Thank you.
[2020-11-25] MEDS: TAMSULOSIN HCL 0.4 MG CAP PO SCH (09:35)
[2020-11-25] MEDS: GABAPENTIN 300 MG CAP PO SCH (09:36)
[2020-11-25] MEDS: ASPIRIN 81 MG ECTAB PO SCH (09:36)
--- NOTE | 2020-11-25 09:42 | Pharmacy Report ---
Pharmacy Glycemic Short Note 2 - Date of Service November 25, 2020 - Glycemic Short BSG Results (Last 24 hours): 11/24/20 11/24/20 11/24/20 12:02 17:02 20:51 Glucose POC Glucose 166 H 154 H 195 H 11/25/20 11/25/20 03:53 08:17 Glucose 250 H POC Glucose 163 H OUTPATIENT ANTIDIABETIC REGIMEN: * Metformin ER 500 mg PO BIDM * Lantus 40 units SC HS * Trulicity 0.75 mg SC weekly * HbA1c = 13.7% (11/20/20) ASSESSMENT: 11/25: * Pt has received 100 units of insulin over the past 24hrs * 50 units of basal with Lantus * 50 units of bolus with NovoLog * BSGs [phone] mg/dl * Post-prandial BSGs elevated slightly - will tighten CHO coverage * AM fasting BSG is above goal range but trending down from yesterday (189 --> 163) Will continue current dosing and titrate if needed tomorrow * Regimen is split 50% basal : 50% prandial 11/24: * BSGs reasonably well controlled yesterday at 159, 167, 113, and 120 mg/dL * Patient received 90 units of insulin (45 units of basal and 45 units of prandial/correctional bolus insulin) * Continues on vancomycin for treatment of MRSA neck cellulitis * Fasting BSG of 189 mg/dL this morning -> will increase Lantus today 11/21: * BSGs yesterday were [phone] mg/dL, acceptable * Received 50 units of basal insulin and 40 units of bolus insulin * Asked for a snack overnight which the RN checked a blood sugar and administered loosened Novolog parameters for * Fasting BSG this AM is greatly improved to 154 mg/dL * Will decrease total basal dose today given BID * Transitioning to once daily basal insulin given at HS to match home regimen * Depending on postprandial trends today, bolus insulin parameters may need loosened PLAN FOR INPATIENT GLYCEMIC CONTROL: * Hold outpatient oral diabetes medications * Basal insulin - no change * Lantus 50 units SC HS * Bolus insulin - tighten CHO ratio * NovoLog per scale ACHS or Q6hrs while NPO * Goal Range: Low 110 mg/dL - High 140 mg/dL * Correction Factor: 15 mg/dL/unit * Nutritional / Prandial insulin per carb ratio of 1 unit per 5 grams CHO consumed PLAN FOR DISCHARGE: * HbA1c from this admission is 13.7% which is above goal. * Per DM educator notes, patient reports missing basal insulin dose up to ~3 times weekly. Patient admits to non-compliance due to work and fear of needles * Would encourage better compliance on discharge. Adding novolog/meal time insulin would likely be best option for improvement in blood sugars/A1c as patient is requiring about ~100 units of insulin/day during this hospital stay thus far * However, if patient not willing for multiple injections per day, would be reasonable to increase home basal dosing ~25% from 40 units to 50 units per day. Would ensure self monitoring of BSGs and ultimately patient would need follow up outpatient as regimen likely would need titrated * The above plan was originally made by pharmacist on 11/22/20 - remains appropriate at this time
--- NOTE | 2020-11-25 09:44 | Hospitalist Progress Note ---
Date of Service November 25, 2020 Assessment & Plan (1) Cellulitis, neck: Patient is a 50 yr male with H/O insulin dependent DM II, dyslipidemia GERD, BPH presented to ER with complaint of right-sided neck redness and swelling x5 days, started after picking a pimple like area. C/O chills, N/V. H/O MRSA in past. Neck Cellulitis/Wound Possible sepsis -Neck CT:Right posterior lateral soft tissue neck edema involving the skin subcutaneous tissues and extending to the superficial muscular fascial margins. No fluid collections to indicate a drainable abscess. The findings are likely infectious/inflammatory basis. No evidence of airway compromise. No pathologic neck masses identified -Blood Cx: Negative to date -Wound Cx:MRSA -Continue IV Vancomycin -Plan to transition to PO Antibiotics upon discharge -Appreciate Infectious disease recommendations. -Denies any Pain (2) Diabetes mellitus, type II: Insulin-dependent DM II. A1c: 13.7 Poorly controlled. Non complaint Continue Insulin therapy Pharmacy to help with glycemic management Diabetes education Monitor BGs Lantus increased to 50 units at bedtime for better control of blood glucose levels. (3) Dyslipidemia: continue Lipitor (4) GERD (gastroesophageal reflux disease): Continue PPI (5) BPH (benign prostatic hyperplasia): Continue tamsulosin History ADD As per records On Ritalin DVT Px: SCDs Ambulate Admission and Anticipated Discharge Date Admission Date: November 20, 2020 Subjective Patient is seen and examined at bedside No new complaints Neck wound--improved swelling, erythema Denies any pain Eager to get discharged Denies chest pain, shortness of breath, dizziness, nausea, abdominal pain Offers no other complaints Review of Systems Review of Systems: All systems reviewed & are unremarkable except as noted in HPI & below Physical Exam Physical Exam: Physical Exam: Vitals signs as noted above General Appearance:Moderately built and nourished, no apparent distress Head: normocephalic, Atraumatic Eyes: normal inspection, EOMI Neck: supple, Trachea midline, +Right posterior wound with less erythema, swelling Respiratory/Chest: Normal breath sounds, CTA Cardiovascular: S1, S2, No murmur Abdomen/GI:Soft, Non tender, Bowel sounds present Extremities/Musculoskelatal:normal inspection, no edema Neurologic/Psych:AAOX3, grossly no focal neurological deficits Skin: normal color, warm Results & Data Results & Data ([facility]) Vital Signs (Past 12 Hours) Vital Signs Temp Pulse Resp BP Pulse Ox 11/25/20 08:23 36.4 C L 93 H 18 133/85 98 Laboratory Results Short CBC 11/25/20 Range/Units 03:53 WBC 9.76 (4.8-10.8) K/uL Hgb 14.9 (14.0-18.0) g/dL Hct 42.3 (42-52) % Plt Count 455 H (130-400) K/uL BMP 11/25/20 03:53 Sodium 136 Potassium 4.6 Chloride 104 Carbon Dioxide 29 BUN 27 H Creatinine 0.94 Glucose 250 H Calcium 8.4 L
--- NOTE | 2020-11-25 10:00 | Discharge Summary ---
Date of Service November 25, 2020 Admission HPI Per Admitting Provider Pt is 50 y/o M with PMH insulin dependent DM II, dyslipidemia GERD, BPH presented to ER with complaint of right-sided neck redness and swelling x5 days. Patient states 5 days ago had pimple-like lesion to right side of neck and reports picked at area. Patient states since with increased swelling and redness and discomfort. Denies any drainage. Also C/O nausea and vomited once this morning. Having chills, no recorded fever at home. H/O MRSA in past. Denies diaphoresis, diarrhea, constipation, FISHER, dizziness, syncope, vision changes, CP, SOB, orthopnea, palpitations, cough, sore throat, choking, otalgia, rhinorrhea, abdominal pain, paresthesias, weakness, extremity weakness, extremity edema, other rashes, urinary symptoms. Admission Exam Per Admitting Provider Physical Exam Physical Exam: General: mild distress secondary to neck discomfort, WDWN Head: normocephalic, atraumatic Eyes: conjunctiva non-injected, anicteric ENT: normal inspection external ears, nose, mucous membranes moist Neck: supple, trachea midline, right lateral neck with area of erythema and warmth with tenderness to palpation measures 6cm x 17 cm with central area of induration measuring 8cm x 5.5 cm with central scab Lungs: clear, no respiratory distress, no wheezing/rhonchi/rales CV: RRR, no murmur, no pretibial edema Abd: normal BS, soft, non-tender Ext: no cyanosis, no erythema Neuro: A&O x 3, no focal deficits noted, normal affect Skin: neck as above, otherwise warm, dry Principal Diagnosis Neck Cellulitis/Wound Possible sepsis Uncontrolled diabetes mellitus Discharge Data Allergies Allergy/AdvReac Type Severity Reaction Status Date / Time No Known Allergies Allergy Unverified 11/19/20 13:24 Consultations 11/19/20 13:59 ED Decision to Admit Stat 11/21/20 08:39 Consult Infectious Diseases Routine Procedures Performed Neck CT:Right posterior lateral soft tissue neck edema involving the skin subcutaneous tissues and extending to the superficial muscular fascial margins. No fluid collections to indicate a drainable abscess. The findings are likely infectious/inflammatory basis. No evidence of airway compromise. No pathologic neck masses identified Ordered Studies 11/19/20 11:54 CT soft tissue neck w con Stat Diabetes Follow up Diabetes Follow-up Needed for HgbA1c >9% Hospital Course (1) Cellulitis, neck: Patient is a 50 yr male with H/O insulin dependent DM II, dyslipidemia GERD, BPH presented to ER with complaint of right-sided neck redness and swelling x5 days, started after picking a pimple like area. C/O chills, N/V. H/O MRSA in past. Neck Cellulitis/Wound Possible sepsis -Neck CT:Right posterior lateral soft tissue neck edema involving the skin subcutaneous tissues and extending to the superficial muscular fascial margins. No fluid collections to indicate a drainable abscess. The findings are likely infectious/inflammatory basis. No evidence of airway compromise. No pathologic neck masses identified -Blood Cx: Negative to date -Wound Cx:MRSA -Continue IV Vancomycin -Plan to transition to PO Antibiotics upon discharge -Appreciate Infectious disease recommendations. -Denies any Pain (2) Diabetes mellitus, type II: Insulin-dependent DM II. A1c: 13.7 Poorly controlled. Non complaint Continue Insulin therapy Pharmacy to help with glycemic management Diabetes education Monitor BGs Lantus increased to 50 units at bedtime for better control of blood glucose levels. (3) Dyslipidemia: continue Lipitor (4) GERD (gastroesophageal reflux disease): Continue PPI (5) BPH (benign prostatic hyperplasia): Continue tamsulosin History ADD As per records On Ritalin DVT Px: SCDs Ambulate Total Time Total Time Spent Total Time Spent (In Minutes): 40 minutes Total Time Includes: Examination of the Patient, Discharge Planning, Medication Reconciliation, Communication With Other Providers and Other Discharge Plan Discharge Items Patient Disposition: Home - Self-Care Reason For Visit: CELLULITIS NECK Discharge Diagnosis: Neck Cellulitis Uncontrolled Diabetes Mellitus Condition on Discharge: Good Activity: Resume your previous activity Exercise/Sports: Gradually increase as tolerated Non-emergency contact: Primary Care Provider Call non-emergency contact if: you have any medication questions, your symptoms worsen, your pain is concerning for you, you have a fever, your wound has increased redness, your wound has increased drainage and your wound pain has increased Follow-up/Referrals: Farhad Diaz MD [Primary Care Provider] - (Date & Time 11/27/2020 3:20 PM Provider Farhad Diaz MD Department [facility] ) Diet: Carb Consistent or DM2 Addtl Attending Provider Instructions: Follow-up with your primary care physician on 11/27/2020 3:20 PM Completed antibiotic course (Bactrim DS) for 8 more days as prescribed Your Lantus is increased from 40 units to 50 units at bedtime for better control of your blood glucose levels. Discussed with your physician for adjustment of insulin therapy as recommended Monitor your blood glucose levels regularly Change wound dressing daily as advised. Seek immediate medical attention if your symptoms reoccur or worsen Pending Studies at Discharge: No Stand-Alone Forms: My [facility], Smoking Cessation Medications and DC Order Prescriptions: New sulfamethoxazole-trimethoprim [Bactrim DS] 800-160 mg tablet 1 tab PO BID 8 Days Qty: 16 RF: 0 Continued gabapentin 300 mg capsule 600 mg PO TID RF: 0 omeprazole 20 mg capsule,delayed release(DR/EC) 20 mg PO Q2D RF: 0 methylphenidate HCl [Ritalin LA] 30 mg Capsule,Er Biphasic 50-50 30 mg PO DAILY RF: 0 aspirin 81 mg Tablet,Delayed Release (Dr/Ec) 81 mg PO QAM RF: 0 sildenafil 100 mg tablet 100 mg PO UD PRN (Reason: Erectile Dysfunction) RF: 0 Trulicity 0.75 mg/0.5 mL pen injector 0.75 mg SUBCUT WK RF: 0 metformin 500 mg tablet extended release 24 hr 500 mg PO BID RF: 0 atorvastatin 40 mg tablet 40 mg PO Q3D RF: 0 tamsulosin 0.4 mg capsule 0.4 mg PO DAILY RF: 0 Changed Lantus Solostar U-100 Insulin 100 unit/mL (3 mL) insulin pen 50 unit subcut HS Qty: 0 RF: 0 Discharge Orders: Discharge Order (Routine); Ordered 11/25/20 Ordered By: Enmanuel Goss/Other Patient Handouts: Discharge Instructions for Cellulitis Admission Data Admit Date/Time: 11/20/20 17:52 Attending Provider: Enmanuel Tillman Admit Provider: Pooja Marks I. Primary Care Provider: Farhad Diaz Other Providers: Pooja Marks I. ; Juan Manuel Wen ; Adriana Sidhu ; Geovani Ohara I. ; Geovanni Jaimes II ; Krista Suarez ; Emil Kam Other Interventions: Discharge Summary Assessment (RN) Last Done: 11/25/20 09:52
== END 2020-11-25 10:10 | disposition home or self-care (01) | DRG 602 ==
LOC: 2W 10:40 → ED 10:40 → 2W 15:52 → SUATTDRO 11-20 17:52 → 3W 11-21 19:04